=== PATIENT | female | born 1945 | race Caucasian/White ===

== ENCOUNTER 2020-05-27 12:48 | Outpatient (CLI) | payer MEDICARE, SELFPAY ==
--- NOTE | ~2020-05-27 | DEXA_ITS ---
Bone Density Report Name: Tawnya Huang Age: 74 Sex: Female Ethnicity: White Date of : 1945 Indication: osteopenia; prior fracture; asthma or emphysema; hysterectomy; rheumatoid arthritis; Referring Provider: Mikey Basilio Study: Bone densitometry was performed. Exam Date: May 27, 2020 Accession number: [id number] Bone Density: Region BMD T-score Z-score Classification AP Spine (L1-L4) 0.864 -1.7 0.6 Osteopenia Femoral Neck (Left) 0.577 -2.5 -0.5 Osteoporosis Total Hip (Left) 0.756 -1.5 0.2 Osteopenia World Health Organization criteria for BMD impression classify patients as: Normal (T-score at or above -1.0), Osteopenia (T-score between -1.0 and -2.5), or Osteoporosis (T-score at or below -2.5). 10-year Fracture Risk: FRAX not reported because: Some T-score for Spine Total or Hip Total or Femoral Neck at or below -2.5 Prior hip or vertebral fracture Previous Exams: Region Exam Age BMD T-score BMD Change BMD Change Date g/cm2 vs Baseline vs Previous AP Spine(L1-L4) 05/27/2020 74 0.864 -1.7 0.000(0.0%) 0.000(0.0%) 05/02/2018 72 0.864 -1.7 Total Hip(Left) 05/27/2020 74 0.756 -1.5 0.010(1.3%) 0.010(1.3%) 05/02/2018 72 0.747 -1.6 *Denotes significance at 95% confidence level, LSC for AP Spine = 0.022 g/cm2, LSC for Total Hip = 0.027 g/cm2 Clinical Information Provided by Patient: Have had a previous hip or vertebral fracture Has had a low trauma fracture Has rheumatoid arthritis Has used the following medications: Prolia (i.e. denosumab), Vitamin D Has the following medical conditions: Asthma or Emphysema, Hysterectomy Patient maximum height was 62 Menopause Age: 52 Drinks caffeinated beverages Onset of menses at age 14 Number of children 3 Impression: The patient has established osteoporosis, based on the Left Femoral Neck T-score and the existence of a prior fracture. The patient has risk factors, including: previous fracture. No significant bone loss was observed. Discussion: HIGH RISK OF FRACTURE. BONE DENSITY IS UNDESIRABLY LOW AT ONE OR MORE SKELETAL SITES, CONSISTENT WITH POSTMENOPAUSAL OSTEOPOROSIS. This patient's lowest T-score, in a patient who has previously fractured, meets the World Health Organization's (WHO) criteria for severe osteoporosis. In untreated patients, the risk of osteoporotic fracture increases approximately two-fold for each 1.0 SD decrease in T-score. Low bone density is not the only risk factor for fracture; also consider factors such as patient's age, frailty
== END 2020-05-27 12:49 | disposition home or self-care (01) ==
LOC: ANHIMG 12:54
PROVIDERS: Visit Provider Internal Medicine Hematology & Oncology
DX: M81.0 Age-related osteoporosis without current pathological fracture (principal); M85.88 Other specified disorders of bone density and structure, other site; M85.852 Other specified disorders of bone density and structure, left thigh
CPT/HCPCS: 77080

== ENCOUNTER 2021-12-10 10:00 | Outpatient (CLI) | payer MEDICARE, SELFPAY ==
--- NOTE | ~2021-12-10 | XR_ITS ---
EXAM: XR wrist RT 2V, XR wrist LT 2V, XR hand LT 2V, XR hand RT 2V DATE: 12/10/2021 10:39 HISTORY: MULTIPLE JOINT PAIN . COMPARISON: None available. FINDINGS: Decreased mineralization. No fracture or dislocation. No lytic or blastic lesion. Slightly erosive appearing interphalangeal joint narrowing and osteophytosis bilaterally more progressive in the right hand, and most severe in the first interphalangeal joint. Narrowing and sclerosis in the bi lateral radiocarpal joints, with subcortical cysts on the left, slightly more progressive on the left . No erosion or periosteal change. Soft tissues within normal limits. 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 Moderate left radio carpal arthritic change, possibly posttraumatic. Reviewed, dictated and finalized at [facility]. IMPRESSION: Arthritic changes the fingers consistent with erosive osteoarthriti s. Moderate left radiocarpal arthritic change, possibly posttraumatic. IMPRESSION: Arthritic changes the fingers consistent with erosive osteoarthriti s. Moderate left radiocarpal arthritic change, possibly posttraumatic. IMPRESSION: Arthritic changes the fingers consistent with erosive osteoarthriti s. Moderate left radiocarpal arthritic change, possibly posttraumatic.
--- NOTE | ~2021-12-10 | XR_ITS ---
EXAM: XR foot RT 2V, XR foot LT 2V, XR ankle RT 2V, XR ankle LT 2V DATE: 12/10/2021 10:39 HISTORY: MULTIPLE JOINT PAIN . COMPARISON: None available. FINDINGS: Decreased mineralization. No fracture or dislocation. No lytic or blastic lesion. Moderate sclerosis and osteophytosis at the bilateral MTP joints. Mild osteoarthritic change in the bilateral first interphalangeal joints. Moderate Achilles and plantar enthesopathy bilaterally. No erosion or periosteal change. Soft tissues within normal limits. IMPRESSION: Moderate osteoarthritic change at the bilateral first MTP joints. Moderate bilateral Achi lles and plantar enthesopathy. Reviewed, dictated and finalized at location K. IMPRESSION: Moderate osteoarthritic change at the bilateral first MTP joints. M oderate bilateral Achilles and plantar enthesopathy. IMPRESSION: Moderate osteoarthritic change at the bilateral first MTP joints. M oderate bilateral Achilles and plantar enthesopathy. IMPRESSION: Moderate osteoarthritic change at the bilateral first MTP joints. M oderate bilateral Achilles and plantar enthesopathy.
--- NOTE | ~2021-12-10 | XR_ITS ---
EXAM: XR sacroiliac joints min 3V DATE: 12/10/2021 10:39 HISTORY: MULTIPLE JOINT PAIN . COMPARISON: None available. FINDINGS: Partially visualized right hip arthroplasty Decreased mineralization. No fracture or dislo cation. No lytic or blastic lesion. Severe L5-S1 degenerative disc disease. Severe sclerosis and eros ion at the pubic symphysis. Mild sclerosis and osteophytosis at the bilateral SI joints. Soft tissues within normal limits. IMPRESSION: Severe L5-S1 degenerative disc disease. Severe osteitis pubis. Minimal bilateral sacroili itis. Reviewed, dictated and finalized at location K. IMPRESSION: Severe L5-S1 degenerative disc disease. Severe osteitis pubis. Mini mal bilateral sacroiliitis.
== END 2021-12-10 10:01 | disposition home or self-care (01) ==
PROVIDERS: Visit Provider Internal Medicine Rheumatology
DX: M79.10 Myalgia, unspecified site (principal); M51.37 Other intervertebral disc degeneration, lumbosacral region; M53.3 Sacrococcygeal disorders, not elsewhere classified; M19.041 Primary osteoarthritis, right hand; M19.031 Primary osteoarthritis, right wrist; M19.042 Primary osteoarthritis, left hand; M19.032 Primary osteoarthritis, left wrist
CPT/HCPCS: 72202; 73100; 73120; 73600; 73620

== ENCOUNTER 2022-05-29 08:52 | Outpatient (CLI) | payer MEDICARE, SELFPAY ==
--- NOTE | ~2022-05-29 | DEXA_ITS ---
Bone Density Report Name: MIHAELA DALEY Age: 76 Sex: Female Ethnicity: White Date of : 1945 Indication: postmenopausal; screening for osteoporosis; prior fracture; asthma or emphysema; hysterectomy; rheumatoid arthritis; secondary osteoporosis; Referring Provider: NATALIE RODRIGUEZ Study: Bone densitometry was performed. Exam Date: May 29, 2022 Accession number: [id number] Bone Density: Region BMD T-score Z-score Classification AP Spine(L1-L4) 0.915 -1.2 1.2 Osteopenia Femoral Neck (Left) 0.601 -2.2 -0.1 Osteopenia Total Hip (Left) 0.759 -1.5 0.3 Osteopenia World Health Organization criteria for BMD impression classify patients as: Normal (T-score at or above -1.0), Osteopenia (T-score between -1.0 and -2.5), or Osteoporosis (T-score at or below -2.5). 10-year Fracture Risk(1): Major Osteoporotic Fracture 27% Hip Fracture 7.7% Reported Risk Factors: [place] (), Neck BMD=0.601, BMI=25.8, previous fracture, rheumatoid arthritis, secondary osteoporosis (1) FRAX(R) Version 3.08. Fracture probability calculated for an untreated patient. Fracture probability may be lower if the patient has received treatment. Clinical Information Provided by Patient: Has had a low trauma fracture Has rheumatoid arthritis Has secondary osteoporosis Has used the following medications: HRT (i.e. estrogen/hormone therapy), Vitamin D Has the following medical conditions: Asthma or Emphysema, Hysterectomy Patient maximum height was 62 Menopause Age: 45 Drinks caffeinated beverages Onset of menses at age 14 Number of children 3 Impression: The patient has low bone mass, based on the Left Femoral Neck T-score. The patient has an estimated ten-year risk of hip fracture of 7.7% and an estimated ten-year risk of major fracture of 27%, based on the WHO FRAX algorithm. The patient has risk factors, including: previous fracture. Discussion: BONE DENSITY IS LOW AT ONE OR MORE SKELETAL SITES. THE PATIENT'S BMD AND CLINICAL RISK FACTORS CONTRIBUTE TO THIS PATIENT'S HIGH RISK OF FRACTURE. This patient's lowest T-score is low at one or more skeletal sites. It meets the World Health Organization's (WHO) criteria for ?low bone mass? (T-score between -1.0 and -2.5). The patient's 10-year risk of hip fracture and 10 year risk of a major osteoporotic fracture as calculated by FRAX exceeds the threshold where pharmacological therapy is recommended by the National Osteoporosis Foundation (NOF). However, all treatment decisions require clinical judgment and consideration of individual patient factors, including patient preferences, comorbidities, previous drug use, risk factors not captured in the FRAX model (e.g., frailty, falls, vitamin D deficiency, increased bone turnover, interval significant decline in bone density) and possible under or overestimat
== END 2022-05-29 08:53 | disposition home or self-care (01) ==
PROVIDERS: Visit Provider Internal Medicine Hematology & Oncology
DX: Z78.0 Asymptomatic menopausal state (principal); M85.89 Other specified disorders of bone density and structure, multiple sites
CPT/HCPCS: 77080

== ENCOUNTER 2023-12-12 09:11 | Outpatient (CLI) | payer MEDICARE, SELFPAY ==
[2023-12-12 09:29] LABS: Basophils Absolute Auto 0.1 K/mm3 (0.0-0.1); Basophils Percent Auto 1.3 % (0.2-1.2); Eosinophils Absolute Auto 0.2 K/mm3 (0-0.3); Eosinophils Percent Auto 3.7 % (0-4.4); Hematocrit 40.9 % (37.0-47.0); Hemoglobin 13.4 g/dL (12.0-15.0); Immature Granulocyte Absolute 0.01 K/mm3 (0.00-0.031); Immature Granulocyte Percent A 0.2 % (0-0.5); Lymphocytes Absolute Auto 1.81 K/mm3 (0.9-3.2); Lymphocytes Percent Auto 28.8 % (18.3-44.2); Mean Corpuscular HGB Conc 32.8 g/dl (32-36); Mean Corpuscular Hemoglobin 27.6 pg (26-34); Mean Corpuscular Volume 84.2 fl (80-100); Monocytes Absolute Auto 0.4 K/mm3 (0.1-0.6); Monocytes Percent Auto 6.4 % (2.6-8.5); Neutrophils Absolute Auto 3.8 K/mm3 (1.3-6.7); Neutrophils Percent Auto 59.6 % (45.5-73.1); Platelet Count Result 265 k/mm3 (150-375); Red Blood Count 4.86 M/mm3 (4.2-5.4); Red Cell Distribution Width 11.9 % (11.5-14.5); White Blood Count 6.3 K/mm3 (4.5-10.0)
[2023-12-12 09:35] LABS: Blood Urea Nitrogen 9 mg/dL (8-26); Carbon Dioxide 26 mmol/L (22-30); Chloride 96 mmol/L (98-109); Estimated Glomerular Filt Rate > 60; Glucose 397 mg/dL (70-105); Ionized Calcium (POC) 1.15 mmol/L (1.11-1.31); Potassium 3.9 mmol/L (3.5-4.9); Sodium 135 mmol/L (138-146)
[2023-12-12 12:47] LABS: Alanine Aminotransferase 17 U/L (6-35); Albumin Level 4.1 g/dL (3.5-5.1); Alkaline Phosphatase 85 U/L (38-126); Anion Gap 9 mmol/L (4-12); Aspartate Amino Transferase 19 U/L (14-36); Bilirubin,Total 0.5 mg/dL (0.2-1.3); Blood Urea Nitrogen 11 mg/dL (7-17); Calcium 9.5 mg/dL (8.4-10.2); Carbon Dioxide 29 mmol/L (22-30); Chloride 95 mmol/L (98-107); Estimated Glomerular Filt Rate > 60; Glucose 405 mg/dL (65-110); Sodium 133 mmol/L (137-145)
[2023-12-12 12:58] LABS: Folic Acid 9.3 ng/mL (2.76->20); Vitamin B12 > 1000.0 pg/mL (239-931)
== END 2023-12-12 09:12 | disposition home or self-care (01) ==
PROVIDERS: Visit Provider Internal Medicine Hematology & Oncology
DX: D64.9 Anemia, unspecified (principal)
CPT/HCPCS: 36415; 80047; 80053; 82607; 82746; 85025

== ENCOUNTER 2024-01-01 16:36 | Emergency (ER) | payer MEDICARE, SELFPAY ==
--- NOTE | ~2024-01-01 | CT_ITS ---
EXAMINATION: CT lumbar spine wo con DATE: 01/01/2024 18:18 INDICATION: Back pain post fall TECHNIQUE: Computed tomography (CT) of the lumbar spine was performed without intravenous contrast. A utomated exposure control and iterative reconstruction technique were employed. The dose-length produ ct was 311.34 mGy-cm. COMPARISON: None FINDINGS: 2 mm retrolisthesis L5 on S1. There is 2 mm right lateral listhesis L3 on L4. There is minimal upper lumbar dextrocurvature and minimal lower lumbar levocurvature. Chronic mild superior endplate sergey ninfa fracture with Schmorl's node at T12, unchanged since CT dated 01/12/2017. Lumbar vertebral body he ights are normal. No acute fractures. Severe disc height loss at L5-S1 and mild to disc height loss a t L2-L3 through L3-L4 and mild to moderate disc height loss at L4-L5 . Moderate bilateral sacral erec t osteoarthritis. Minimal atelectasis at the posterior sulci as well as of the bilateral lower lobes. The following disc levels are specifically discussed: T11-T12: The disc does not extend beyond the endplate margin. There is mild to moderate bilateral fac et joint osteoarthritis. There is no neural foraminal stenosis. There is no central canal stenosis. T12-L1: The disc does not extend beyond the endplate margin. There is moderate bilateral facet joint osteoarthritis. There is no neural foraminal stenosis. There is no central canal stenosis. L1-L2: Disc is bulging. There is mild right and moderate left facet joint osteoarthritis. There is mi ld bilateral neural foraminal stenosis. There is mild central canal stenosis. L2-L3: Disc is bulging. There is mild left and moderate to severe right facet joint osteoarthritis. T here is mild to moderate bilateral neural foraminal stenosis. There is mild to moderate central canal stenosis. L3-L4: Disc is bulging. There is mild right and moderate left facet joint osteoarthritis. There is mi ld to moderate left and moderate right neural foraminal stenosis. There is mild to moderate central c anal stenosis. L4-L5: Disc is bulging. There is moderate left and severe right facet joint osteoarthritis. There is moderate bilateral neural foraminal stenosis. There is moderate central canal stenosis. L5-S1: Disc is bulging. There is severe bilateral facet joint osteoarthritis. There is moderate left and moderate to severe right neural foraminal stenosis. There is moderate central canal stenosis. IMPRESSION: 1. Severe lumbosacral and mild lumbar spondylosis as detailed above. No acute osseous abnormality. Reviewed, dictated and finalized at location A. IMPRESSION: 1. Severe lumbosacral and mild lumbar spondylosis as detailed above. No acute o sseous abnormality.
[2024-01-01 16:42] VITALS: BP 148/70; PULSE 112; RESP 16; TEMP 36.4; O2SAT 96
[2024-01-01 18:39] VITALS: BP 171/78; PULSE 91; RESP 15; O2SAT 100
--- NOTE | 2024-01-01 20:13 | ED.FALL ---
HPI - Fall General Chief Complaint: Fall Stated Complaint: fall, back pain Time Seen by Provider: 01/01/24 19:03 History of Present Illness HPI Narrative: 78 years old white female, tripped on her dog and fell forward landed on her knees and slid forward 5 days ago, 2 days later started having pain at the right lower back radiating to the right lower extremity. Worse with certain position and certain. Patient drove herself to the emergency room and currently complaining of burning sensation at the back of the calf muscle, no lower back pain. History of rheumatoid arthritis and hypothyroidism. Also is telling me that she have history of lumbar bulging disc. She denies Patient denies bowel dysfunction, bladder dysfunction, altered sensation, focal weakness, or saddle numbness, Related Data Home Medications Medication Instructions Recorded Confirmed albuterol sulfate 90 mcg/actuation 1 - 2 inh inhalation Q4H PRN 03/04/19 06/11/23 aerosol inhaler (ProAir HFA) Shortness Of Breath alprazolam 0.5 mg tablet 0.5 mg PO DAILY 03/04/19 06/11/23 amiloride 5 mg-hydrochlorothiazide 0.5 tablet PO DAILY 03/04/19 06/11/23 50 mg tablet budesonide-formoterol HFA 160 2 puff inhalation Q12H 03/04/19 06/11/23 mcg-4.5 mcg/actuation aerosol inhaler (Symbicort) cholecalciferol (vitamin D3) 25 2,000 unit PO DAILY 03/04/19 06/11/23 mcg (1,000 unit) capsule (Vitamin D3) lansoprazole 30 mg capsule,delayed 30 mg PO DAILY 03/04/19 06/11/23 release metformin 500 mg tablet 500 mg PO DAILY 03/04/19 06/11/23 montelukast 10 mg tablet 10 mg PO HS 03/04/19 06/11/23 rosuvastatin 5 mg tablet 5 mg PO DAILY 11/24/21 06/11/23 venlafaxine 50 mg tablet 50 mg PO DAILY 12/08/22 06/11/23 levothyroxine 1 tab-cap PO DAILY 12/13/23 12/13/23 Allergies Allergy/AdvReac Type Severity Reaction Status Date / Time cefuroxime Allergy Mild Anaphylaxis Verified 01/01/24 18:38 ciprofloxacin Allergy Mild Anaphylaxis Verified 01/01/24 18:38 Sulfa (Sulfonamide Allergy Mild Hives Verified 01/01/24 18:38 Antibiotics) leflunomide Allergy Hives Verified 12/13/23 11:09 Review of Systems Review of Systems: All systems reviewed & are unremarkable except as noted in HPI and below Exam Narrative: General appearance: Well-developed, well-nourished Skin: Normal color Head: Normocephalic, nontraumatic Eyes: Clear conjunctiva ENT: Oropharynx normal, ears normal, nose normal Neck: Supple, nontender Chest and respiratory: Airway patent, no respiratory distress, no accessory muscle use Heart: Regular rate/rhythm Abdomen: Soft, nontender, no organomegaly, quiet bowel sounds Vascular: Normal peripheral pulses, normal capillary refill. Musculoskeletal: Mild tenderness along the lumbar spine, no bruises, no swelling or rash. Neurologic: Alert and oriented ?3, PLATE GRINDER is normal as tested, no gross motor deficit, negative right leg straight raising test. Course Vital Signs Vital signs: Vital Signs Temperature 36.4 C 01/01/24 16:42 Pulse Rate 112 H 01/01/24 16:42 Respiratory Rate 16 01/01/24 16:42 Blood Pressure 148/70 H 01/01/24 16:42 Pulse Oximetry 96 01/01/24 16:42 Temperature 36.4 C 01/01/24 16:42 Pulse Rate 91 01/01/24 18:39 Respiratory Rate 15 01/01/24 18:39 Blood Pressure 171/78 H 01/01/24 18:39 Pulse Oximetry 100 01/01/24 18:39 MDM - Fall MDM Narrative Medical decision making narrative: Patient presents with lower back pain radiating to right lower extremity in history of bulging disc and lumbar area Patient drove herself to the emergency room Vital signs are stable on arrival to the ED Physical examination showed negative right leg strai
[2024-01-01] MEDS: IBUPROFEN 600 MG TABLET PO (20:26)
[2024-01-01] MEDS: ACETAMINOPHEN 325 MG TABLET 650 MG PO (20:26)
[2024-01-01] MEDS: dexAMETHasone SOD PHOS INJ 10 MG/ML 1 ML VIAL IM (20:29)
[2024-01-01 20:34] VITALS: BP 156/88; PULSE 78; RESP 16; O2SAT 100
== END 2024-01-01 20:34 | disposition home or self-care (01) ==
PROVIDERS: Emergency Provider Emergency Medicine
DX: S39.92XA Unspecified injury of lower back, initial encounter (principal); M47.26 Other spondylosis with radiculopathy, lumbar region; E03.9 Hypothyroidism, unspecified; M06.9 Rheumatoid arthritis, unspecified; Z79.899 Other long term (current) drug therapy; Z79.84 Long term (current) use of oral hypoglycemic drugs; W01.0XXA Fall on same level from slipping, tripping and stumbling without subsequent striking against object, initial encounter
CPT/HCPCS: 72131; 96372; 99284; A9270; J1100

== ENCOUNTER 2024-06-11 10:59 | Outpatient (CLI) | payer MEDICARE, SELFPAY ==
--- NOTE | ~2024-06-11 | DEXA_ITS ---
Bone Density Report Name: MIHAELA DALEY Age: 78 Sex: Female Ethnicity: White Date of : 1945 Indication: osteopenia; monitoring treatment; prior fracture; asthma or emphysema; hysterectomy; rheumatoid arthritis; secondary osteoporosis; Referring Provider: NATALIE RODRIGUEZ Study: Bone densitometry was performed. Exam Date: June 11, 2024 Accession number: [id number] Bone Density: Region BMD T-score Z-score Classification AP Spine(L1-L4) 0.935 -1.0 1.5 Normal Femoral Neck (Left) 0.639 -1.9 0.3 Osteopenia Total Hip (Left) 0.770 -1.4 0.5 Osteopenia World Health Organization criteria for BMD impression classify patients as: Normal (T-score at or above -1.0), Osteopenia (T-score between -1.0 and -2.5), or Osteoporosis (T-score at or below -2.5). 10-year Fracture Risk: FRAX not reported because: Treated for osteoporosis Previous Exams: Region Exam Age BMD T-score BMD Change BMD Change Date g/cm2 vs Baseline vs Previous AP Spine (L1-L4) 06/11/2024 78 0.935 -1.0 0.071 (8.3%)# 0.020 (2.2%)# 05/29/2022 76 0.915 -1.2 0.051 (5.9%)* 0.051 (5.9%)* 05/27/2020 74 0.864 -1.7 0.000 (0.0%) 0.000 (0.0%) 05/02/2018 72 0.864 -1.7 Total Hip(Left) 06/11/2024 78 0.770 -1.4 0.024 (3.1%)# 0.011 (1.5%)# 05/29/2022 76 0.759 -1.5 0.012 (1.6%) 0.002 (0.3%) 05/27/2020 74 0.756 -1.5 0.010 (1.3%) 0.010 (1.3%) 05/02/2018 72 0.747 -1.6 *Denotes significance at 95% confidence level, LSC for AP Spine = 0.022 g/cm2, LSC for Total Hip = 0.027 g/cm2 # Denotes dissimilar scan types or analysis methods Clinical Information Provided by Patient: Has had a low trauma fracture Has rheumatoid arthritis Has secondary osteoporosis Is being treated for osteoporosis Has used the following medications: Vitamin D, Calcium Has the following medical conditions: Asthma or Emphysema, Hysterectomy Patient maximum height was 62 Menopause Age: 45 Drinks caffeinated beverages Onset of menses at age 14 Number of children 3 Impression: The patient has low bone mass, based on the Left Femoral Neck T-score. The patient has risk factors, including: previous fracture. No significant bone loss was observed. Discussion: PATIENT UNDER TREATMENT WITH NO SIGNIFICANT BMD LOSS SINCE LAST EXAM. In an untreated patient, BMD typically declines with age. A lack of decline or gain is usually a sign that treatment is efficacious and fracture risk is reduced. It is important to ask patients whether they are taking their medications and to encourage continued and appropriate compliance with their osteoporosis therapies to reduce fracture risk. It is also important to review their risk factors and encourage appropriate calcium and vitamin D intakes, exercise, fall prevention and other lifestyle measures. Follow-Up: Consider a repeat BMD and Vertebral Fracture Assessment (VFA) exam in 2 years or sooner if medically necessary, to reassess this patient's status. Reported by: CANDY on 06/11/2024 11:25:00 AM. Reviewed, dictated and finalized at location AStefani [facility]ERON
--- OUTSIDE RECORDS SUMMARY | 2024-06-11 12:13 | XMS_ITS | Continuity of Care Document ---
Author Organization [facility] Address [address] [place] [address] [address] [place] [address] Phone Care Team Providers Care Pegger Name Role Phone Augusta Gaston Unavailable Unavailable Procedures Procedure Date Office/outpatient Visit, Est Advance Directives Directive Yes / No Effective Date File Name No Information Encounters Encounter Description Practice Location Reason(s) For Visit Diagnoses Date Provider Providers Copied on Encounter Office/outpat ient Visit, Est [facility], [address] [place] [address] [address], [place], [place], [id number], [place] tel:[phone] [facility] No Information 0-[address] , [address], [place], [address], [place]. tel:[phone] Family History Family Member Type Diagnosis Age At Onset No Information Payers Payer name Insurance type Covered libertarian ID Authoriza tion(s) No Information Social History Type Description Quantity Date Captured Comments Sex Female Smoking Status No Information Chief Complaint And Reason For Visit No Information Reason For Referral Reason For Referral No Information History Of Present Illness Encounter Date Complaint History Of Prese nt Illness No Information Functional Status Date Functional Assessmen t No Information Instructions Date Instruction Additional Infor mation No Information Assessments Type Assessment Date No Information Patient Care Teams Name Effective Dates (start - stop) Status Members No Information
--- OUTSIDE RECORDS SUMMARY | 2024-06-11 12:13 | XMS_ITS | Data Portability ---
Author Organization [place] [facility],, Frances gonzalez Address [address] [place] [address] Assessment No assessment recorded. Plan of Treatment Reminders Order Date Submit Date Provider Last Modified By Organization Details Last Modified Time Details Appointments ESTABL ROSIE Jasso VISIT 2024 10:00A M Frances Gonzalez, OPHTHALMIC TECHNICIAN-C Not available Not available Not available Lab cultur e, urine 2020 021 ERVIN [facility], [address], [place], [address], 05/24/2020 14:10:13 urinal ysis, dipsti ck 2020 021 [email or web address] [facility], [address], [address], [place], [address], 05/21/2020 12:56:13 urinal ysis, comple te 2020 021 ERVIN [facility], [address], [place], [address], 05/24/2020 14:10:12 TSH + free T4, serum 2020 021 ERVIN [facility], [address], [place], [address], 12/07/2020 08:48:35 lipid panel, serum 2020 021 ERVIN [facility], [address], [place], [address], 12/07/2020 08:48:36 HbA1c (hemog lobin A1c), blood 2020 021 ERVIN [facility], [address], [address], [place], [address], 12/07/2020 08:48:36 CBC 2020 021 [email or web address] [facility], [address], [address], [place], [address], 12/13/2020 15:05:24 vitami n D, 25-hyd tania, total, serum 2020 021 ERVIN [facility], [address], [place], [address], 12/07/2020 08:48:37 urinal ysis, dipsti ck 2020 021 [facility], [address], [address], [place], [address], 12/06/2020 14:03:53 vitami n B12, serum 2020 021 ERVIN [facility], [address], [address], [place], [address], 12/07/2020 08:48:37 CMP, serum or plasma 2020 021 ERVIN [facility], [address], [address], [place], [address], 12/07/2020 08:48:36 rapid flu (A+B) 2024 025 [facility], [address], [address], [place], [address], 06/02/2024 15:19:06 rapid SARS CoV 2 Ag, QL, IA, upper respir atory specim en 2024 025 In-Office Order, Internal Use Only DO Not Attach Compendium DO Not Attach Compendium, Do Not Delete/merge, [id number] 06/02/2024 15:19:59 Referral None record ed. Procedures None record ed. Surgeries None record ed. Imaging electr ocardi ogram 2020 [email or web address] [facility], [address], [address], [place], [address], 12/06/2020 15:00:20 MAMMO, screen ing, digita l, bilate ral 2020 [email or web address] [facility], [address] [facility], [place], [address], 12/21/2020 17:23:34 Medication Orders Macrob id 100 mg capsul e 2020 [facility] [place], [address], 05/15/2023 16:32:59 Euthyr ox 100 mcg tablet [address] [facility] [address] [place], [address], 12/06/2020 14:03:53 rosuva statin 10 mg tablet 2020 021 [facility] [address], [address] [place], [address], 05/15/2023 16:33:25 metfor min 500 mg tablet [address] [facility] [address] [facility] [address] [place], [address], 12/06/2020 14:03:53 budeso nide-f ormote rol HFA 160 mcg-4. 5 mcg/ac tuatio n aeroso l inhale r 2020 021 [email or web address] [facility] [address], [address] [place], [address], 12/07/2020 15:45:45 maribell ukast 10 mg tablet [address] [facility] [address] [facility] [address] [facility], [place], [address], 12/06/2020 14:03:53 lansop razole 30 mg capsul e,israel yed releas e [address] [facility] [address] [facility] [address], [address] [facility], [place], [address], 12/06/2020 14:03:53 sertra line 50 mg tablet 2020 021 [facility] [address], [address] [facility], [place], [address], 05/15/2023 16:33:51 amilor lucio 5 mg-hyd rochlo rothia zide 50 mg tablet [address] [facility] [address] [facility] [address], [address] [facility], [place], [address], 12/06/2020 14:03:53 ipratr opium bromid e 21 mcg (0.03 %) nasal spray 2020 021 [facility] [address] [place], [address], 12/06/2020 15:12:26 budeso nide-f ormote rol HFA 160 mcg-4. 5 mcg/ac tuatio n aeroso l inhale r 2020 021 [id number], [address] [address], [place], [place], [id number], 02/22/2021 12:06:55 predni sone 10 mg tablet 2024 025 [facility] [address], [address] [place], [address], 06/02/2024 15:35:19 budeso nide-f ormote rol HFA 160 mcg-4. 5 mcg/ac tuatio n aeroso l inhale r 2024 025 [facility] [address], [address] [place], [address], 06/02/2024 15:36:25 albute rol sulfat e HFA 90 mcg/ac tuatio n aeroso l inhale r 2024 025 [facility] [address], [address] [place], [address], 06/02/2024 15:37:43 amoxic illin 875 mg-pot assium clavul anate 125 mg tablet 2024 025 [facility], [address] [place] [address], [address], 06/02/2024 15:35:20 Patient TargetsNo targets recorded. Patient Instructions Encounter Date Encounter Id Patient Instructions Last Modified By Organization Details Last Modified Time 12/06/2020 [id number] Please follow a diet that is high in fruits and vegetables and low in processed foods such as sugar and foods that are made with white flour. The use of beneficial fats such as olive oil, nuts, seeds and berries is recommended as is avoiding saturated animal fats. Please stay physically active to the extent that you are able. If you have not received communication about test results within 7 days of the test being performed, please contact the office. Not available 12/06/2020 14:36:29 Side effects of inhaled corticosteroids were reviewed with emphasis placed on oral candidiasis and dysphonia. Rinsing the mouth after utilization should decrease the incidence of oral candidiasis significantly. Sometimes use of the spacer may improve symptoms of dysphonia. Not available 12/06/2020 14:36:40 02/22/2021 [id number] influenza (flu) vaccine: care instructions [email or web address] Not available 02/22/2021 12:06:55 06/02/2024 [id number] Oral steroids si de effects were reviewed with emphasis on weight gain, increased appetite, mood changes, heartburn, hypertension, diabetes, thinning of the bones, hip damage such as aseptic necrosis, glaucoma, cataracts, and infection. Side effects of inhaled corticosteroids were reviewed with emphasis placed on oral candidiasis and dysphonia. Rinsing the mouth after utilization should decrease the incidence of oral candidiasis significantly. Sometimes use of the spacer may improve symptoms of dysphonia. Penicillin and cephalosporin side effects were reviewed with emphasis on gastrointestinal problems such as diarrhea and allergic reactions.Probiotic s maybe helpful in preventing the GI side effects. Allergic reactions may be severe. Discontinue the medication and call the office if rash, fever, or mouth sores develop. Not available 06/08/2024 16:37:28 Reason for Referral None Reported. Results Created Date Observation Date Name Description Value Unit Range Abnormal Flag Note LastModifiedBy Organization Detail LastModifiedTime 05/21/1905/22/2020 urina lysis , compl ete specific gravity 1.009 1.005- 1.030 Not Available [facility] ([facility]) [address] [place], [address], 05/24/2020 14:10:12 05/21/1905/22/2020 urina lysis , compl ete pH 7.0 5.0-7. 5 Not Available [facility] ([facility]) [address] [place], [address], 05/24/2020 14:10:12 05/21/1905/22/2020 urina lysis , compl ete urine-color Yellow yellow Not Available [facility] ([facility]) [address] [place], [address], 05/24/2020 14:10:12 05/21/1905/22/2020 urina lysis , compl ete appearance Clear clear Not Available [facility] ([facility]) [address] [place], [address], 05/24/2020 14:10:12 05/21/1905/22/2020 urina lysis , compl ete WBC esterase 2+ negati ve abnormal Not Available [facility] ([facility]) [address] [place], [address], 05/24/2020 14:10:12 05/21/1905/22/2020 urina lysis , compl ete protein Negati ve negati ve/tra ce Not Available [facility] ([facility]) [address] [place], [address], 05/24/2020 14:10:12 05/21/1905/22/2020 urina lysis , compl ete glucose Negati ve negati ve Not Available [facility] ([facility]) [address] [place], [address], 05/24/2020 14:10:12 05/21/1905/22/2020 urina lysis , compl ete ketones Negati ve negati ve Not Available [facility] ([facility]) [address] [place], [address], 05/24/2020 14:10:12 05/21/1905/22/2020 urina lysis , compl ete occult blood Negati ve negati ve Not Available [facility] ([facility]) [address] [place], [address], 05/24/2020 14:10:12 05/21/1905/22/2020 urina lysis , compl ete bilirubin Negati ve negati ve Not Available [facility] ([facility]) [address] [place], [address], 05/24/2020 14:10:12 05/21/1905/22/2020 urina lysis , compl ete urobilinogen ,semi-qn 0.2 mg/dL 0.2-1. 0 Not Available [facility] ([facility]) [address] [place], [address], 05/24/2020 14:10:12 05/21/19 21 05/22/2020 urina lysis , compl ete nitrite, urine Positi ve negati ve abnormal Not Available [facility] ([facility]) [address] [place], [address], 05/24/2020 14:10:12 05/21/19 21 05/22/2020 urina lysis , compl ete microscopic examination See below: Micro scopi c was indic ated and was perfo rmed. Not Available [facility] ([facility]) [address] [place], [address], 05/24/2020 14:10:12 05/21/19 21 05/22/2020 urina lysis , compl ete WBC 0-5 /hpf 0 - 5 Not Available [facility] ([facility]) [address] [place], [address], 05/24/2020 14:10:12 05/21/19 21 05/22/2020 urina lysis , compl ete RBC 0-2 /hpf 0 - 2 Not Available [facility] ([facility]) [address] [place], [address], 05/24/2020 14:10:12 05/21/19 21 05/22/2020 urina lysis , compl ete epithelial cells (non renal) 0-10 /hpf 0 - 10 Not Available [facility] ([facility]) [address] [place], [address], 05/24/2020 14:10:12 05/21/1905/22/2020 urina lysis , compl ete epithelial cells (renal) OPHTHALMIC TECHNICIAN Not Available [facility] ([facility]) [address] [place], [address], 05/24/2020 14:10:12 05/21/19 21 05/22/2020 urina lysis , compl ete casts OPHTHALMIC TECHNICIAN Not Available [facility] ([facility]) [address] [facility], [place], [address], 05/24/2020 14:10:12 05/21/19 21 05/22/2020 urina lysis , compl ete cast type OPHTHALMIC TECHNICIAN Not Available [facility] ([facility]) [address] [facility], [place], [address], 05/24/2020 14:10:12 05/21/19 21 05/22/2020 urina lysis , compl ete crystals OPHTHALMIC TECHNICIAN Not Available [facility] ([facility]) [address] [facility], [place], [address], 05/24/2020 14:10:12 05/21/19 21 05/22/2020 urina lysis , compl ete crystal type OPHTHALMIC TECHNICIAN Not Available [facility] ([facility]) [address] [facility], [place], [address], 05/24/2020 14:10:12 05/21/19 21 05/22/2020 urina lysis , compl ete mucus threads Presen t not estab. Not Available [facility] ([facility]) [address] [facility], [place], [address], 05/24/2020 14:10:12 05/21/19 21 05/22/2020 urina lysis , compl ete bacteria Modera te none seen/f ew abnormal Not Available [facility] ([facility]) [address] [facility], [place], [address], 05/24/2020 14:10:12 05/21/1905/22/2020 urina lysis , compl ete yeast OPHTHALMIC TECHNICIAN Not Available [facility] ([facility]) [address] [place], [address], 05/24/2020 14:10:12 05/21/1905/22/2020 urina lysis , compl ete trichomonas OPHTHALMIC TECHNICIAN Not Available [facility] ([facility]) [address] [facility], [place], [address], 05/24/2020 14:10:12 05/21/19 21 05/22/2020 urina lysis , compl ete comment OPHTHALMIC TECHNICIAN Not Available [facility] ([facility]) [address] [facility], [place], [address], 05/24/2020 14:10:12 05/21/19 21 05/22/2020 urina lysis , compl ete microscopic examination OPHTHALMIC TECHNICIAN Not Available [facility]) [address] [facility], [place], [address], 05/24/2020 14:10:12 05/21/1905/24/2020 cultu re, urine urine culture,comp rehensive Final report abnormal Not Available [facility] ([facility]) [address] [facility], [place], [address], 05/24/2020 14:10:13 05/21/1905/24/2020 cultu re, urine result 1 Escher ichia coli abnormal Great er than 100,0 00 colon y formi ng units per mL Cefaz geovany <=4 ug/mL Cefaz geovany with an ANH <=16 predi cts susce ptibi lity to the oral agent s cefac america, cefdi netta, cefpo doxim e, cefpr ozil, cefur oxime , cepha lexin , and lorac arbef when used for thera py of uncom plica cedric urina ry tract infec tions due to E. coli, Klebs iella pneum oniae , and Prote us mirab ilis. Not Available [facility] ([facility]) [address] [facility], [place], [address], 05/24/2020 14:10:13 05/21/1905/24/2020 cultu re, urine antimicrobia l susceptibili ty Commen t S = Susce ptibl e; I = Inter media te; R = Resis tant P = Posit obey; N = Negat obey MICS are expre ssed in micro grams per mL Antib iotic RSLT# 1 RSLT# 2 RSLT# 3 RSLT# 4 Amoxi cilli n/Cla vulan ic Acid S Ampic illin R Cefep sabino S Ceftr iaxon e S Cefur oxime I Cipro floxa satish R Ertap enem S Genta micin S Imipe nem S Levof loxac in R Merop enem S Nitro furan toin S Piper acill in/Ta zobac romo S Tetra cycli ne R Tobra mycin S Trime thopr im/Mijares lfa S Not Available [facility] ([facility]) [address] [facility], [place], [address], 05/24/2020 14:10:13 05/21/19 21 05/21/2020 urina lysis , dipst ick Leukocytes Modera te Not Available [facility] [address] [facility] [address], [place], [address], 05/21/2020 12:46:16 05/21/19 21 05/21/2020 urina lysis , dipst ick Nitrite positi ve Not Available [facility] [address] [facility] [address], [place], [address], 05/21/2020 12:46:16 05/21/19 21 05/21/2020 urina lysis , dipst ick Urobilinogen .2 Not Available [facility] [address] [facility] [address], [place], [address], 05/21/2020 12:46:16 05/21/19 21 05/21/2020 urina lysis , dipst ick Protein Negati ve Not Available [facility] [address] [facility] [address], [place], [address], 05/21/2020 12:46:16 05/21/19 21 05/21/2020 urina lysis , dipst ick pH 7.5 Not Available [facility] [address] [facility] [address], [place], [address], 05/21/2020 12:46:16 05/21/19 21 05/21/2020 urina lysis , dipst ick Blood Hemoly zed: Trace Not Available [facility] [address], [place], [address], 05/21/2020 12:46:16 05/21/19 21 05/21/2020 urina lysis , dipst ick Specific Victoria 1.025 Not Available [facility] [address] [facility] [address], [place], [address], 05/21/2020 12:46:16 05/21/19 21 05/21/2020 urina lysis , dipst ick Ketone Modera te Not Available [facility] [address] [facility] [address], [place], [address], 05/21/2020 12:46:16 05/21/19 21 05/21/2020 urina lysis , dipst ick Bilirubin Negati ve Not Available [facility] [address] [facility] [address], [place], [address], 05/21/2020 12:46:16 05/21/19 21 05/21/2020 urina lysis , dipst ick Glucose Negati ve Not Available [facility] [address] [facility] [address], [place], [address], 05/21/2020 12:46:16 12/07/19 21 12/07/2020 TSH+F REE T4 TSH 0.422 uIU/m L 0.450- 4.500 below low normal Not Available [facility] ([facility]) [address] [facility], [place], [address], 12/07/2020 08:48:35 12/07/1912/07/2020 TSH+F REE T4 T4,free(dire ct) 1.74 NG/dL 0.82-1 .77 Not Available [facility] ([facility]) [address] [facility], [place], [address], 12/07/2020 08:48:35 12/07/19 21 12/07/2020 CBC WITH DIFFE RENTI AL/PL ATELE T WBC 8.5 x10e3 /uL 3.4-10 .8 Not Available [facility] ([facility]) [address] [facility], [place], [address], 12/07/2020 08:48:35 12/07/19 21 12/07/2020 CBC WITH DIFFE RENTI AL/PL ATELE T RBC 4.47 x10e6 /uL 3.77-5 .28 Not Available [facility] ([facility]) [address] [facility], [place], [address], 12/07/2020 08:48:35 12/07/19 21 12/07/2020 CBC WITH DIFFE RENTI AL/PL ATELE T hemoglobin 12.7 g/dL 11.1-1 5.9 Not Available [facility] ([facility]) [address] [place], [address], 12/07/2020 08:48:35 12/07/19 21 12/07/2020 CBC WITH DIFFE RENTI AL/PL ATELE T hematocrit 38.6 % 34.0-4 6.6 Not Available [facility] ([facility]) [address] [place], [address], 12/07/2020 08:48:35 12/07/19 21 12/07/2020 CBC WITH DIFFE RENTI AL/PL ATELE T MCV 86 fL 79-97 Not Available [facility] ([facility]) [address] [place], [address], 12/07/2020 08:48:35 12/07/19 21 12/07/2020 CBC WITH DIFFE RENTI AL/PL ATELE T MCH 28.4 pg 26.6-3 3.0 Not Available [facility] ([facility]) [address] [facility], [place], [address], 12/07/2020 08:48:35 12/07/19 21 12/07/2020 CBC WITH DIFFE RENTI AL/PL ATELE T MCHC 32.9 g/dL 31.5-3 5.7 Not Available [facility] ([facility]) [address] [facility], [place], [address], 12/07/2020 08:48:35 12/07/19 21 12/07/2020 CBC WITH DIFFE RENTI AL/PL ATELE T RDW 12.4 % 11.7-1 5.4 Not Available [facility] ([facility]) [address] [facility], [place], [address], 12/07/2020 08:48:35 12/07/19 21 12/07/2020 CBC WITH DIFFE RENTI AL/PL ATELE T platelets 353 x10e3 /uL 150-45 0 Not Available [facility] ([facility]) [address] [facility], [place], [address], 12/07/2020 08:48:35 12/07/19 21 12/07/2020 CBC WITH DIFFE RENTI AL/PL ATELE T neutrophils 66 % not estab. Not Available [facility] ([facility]) [address] [place], [address], 12/07/2020 08:48:35 12/07/19 21 12/07/2020 CBC WITH DIFFE RENTI AL/PL ATELE T lymphs 26 % not estab. Not Available [facility] ([facility]) [address] [place], [address], 12/07/2020 08:48:35 12/07/19 21 12/07/2020 CBC WITH DIFFE RENTI AL/PL ATELE T monocytes 5 % not estab. Not Available [facility] ([facility]) [address] [facility], [address], 12/07/2020 08:48:35 12/07/19 21 12/07/2020 CBC WITH DIFFE RENTI AL/PL ATELE T eos 2 % not estab. Not Available [facility] ([facility]) [address] [place], [address], 12/07/2020 08:48:35 12/07/19 21 12/07/2020 CBC WITH DIFFE RENTI AL/PL ATELE T basos 1 % not estab. Not Available [facility] ([facility]) [address] [place], [address], 12/07/2020 08:48:35 12/07/19 21 12/07/2020 CBC WITH DIFFE RENTI AL/PL ATELE T immature cells OPHTHALMIC TECHNICIAN Not Available [facility] ([facility]) [address] [place], [address], 12/07/2020 08:48:35 12/07/19 21 12/07/2020 CBC WITH DIFFE RENTI AL/PL ATELE T neutrophils (absolute) 5.7 x10e3 /uL 1.4-7. 0 Not Available [facility] ([facility]) [address] [place], [address], 12/07/2020 08:48:35 12/07/1912/07/2020 CBC WITH DIFFE RENTI AL/PL ATELE T lymphs (absolute) 2.2 x10e3 /uL 0.7-3. 1 Not Available [facility] ([facility]) [address] [place], [address], 12/07/2020 08:48:35 12/07/19 21 12/07/2020 CBC WITH DIFFE RENTI AL/PL ATELE T monocytes(ab solute) 0.4 x10e3 /uL 0.1-0. 9 Not Available [facility] ([facility]) [address] [place], [address], 12/07/2020 08:48:35 12/07/19 21 12/07/2020 CBC WITH DIFFE RENTI AL/PL ATELE T eos (absolute) 0.1 x10e3 /uL 0.0-0. 4 Not Available [facility] ([facility]) [address] [facility], [place], [address], 12/07/2020 08:48:35 12/07/19 21 12/07/2020 CBC WITH DIFFE RENTI AL/PL ATELE T baso (absolute) 0.1 x10e3 /uL 0.0-0. 2 Not Available [facility] ([facility]) [address] [facility], [place], [address], 12/07/2020 08:48:35 12/07/19 21 12/07/2020 CBC WITH DIFFE RENTI AL/PL ATELE T immature granulocytes 0 % not estab. Not Available [facility] ([facility]) [address] [facility], [place], [address], 12/07/2020 08:48:35 12/07/19 21 12/07/2020 CBC WITH DIFFE RENTI AL/PL ATELE T immature grans (abs) 0.0 x10e3 /uL 0.0-0. 1 Not Available [facility] ([facility]) [address] [facility], [place], [address], 12/07/2020 08:48:35 12/07/19 21 12/07/2020 CBC WITH DIFFE RENTI AL/PL ATELE T NRBC OPHTHALMIC TECHNICIAN Not Available [facility] ([facility]) [address] [facility], [place], [address], 12/07/2020 08:48:35 12/07/19 21 12/07/2020 CBC WITH DIFFE RENTI AL/PL ATELE T hematology comments: OPHTHALMIC TECHNICIAN Not Available [facility] ([facility]) [address] [facility], [place], [address], 12/07/2020 08:48:35 12/07/19 21 12/07/2020 COMP. METAB OLIC PANEL (14) glucose 87 mg/dL 65-99 Not Available [facility] ([facility]) [address] [place], [address], 12/07/2020 08:48:35 12/07/19 21 12/07/2020 COMP. METAB OLIC PANEL (14) BUN 6 mg/dL 8-27 below low normal Not Available [facility] ([facility]) [address] [place], [address], 12/07/2020 08:48:35 12/07/19 21 12/07/2020 COMP. METAB OLIC PANEL (14) creatinine 0.61 mg/dL 0.57-1 .00 Not Available [facility] ([facility]) [address] [facility], [place], [address], 12/07/2020 08:48:35 12/07/19 21 12/07/2020 COMP. METAB OLIC PANEL (14) eGFR if nonafricn AM 90 mL/mi n/1.7 3 >59 Not Available [facility] ([facility]) [address] [facility], [place], [address], 12/07/2020 08:48:35 12/07/19 21 12/07/2020 COMP. METAB OLIC PANEL (14) eGFR if africn AM 104 mL/mi n/1.7 3 >59 Lab [facility] curre ntly repor ts eGFR in compl iance with the curre nt recom menda tions of the [facility] ation . [facility] will updat e repor ting as new guide lines are publi shed from the NKF-A SN Task force . Not Available [facility] ([facility]) [address] [place], [address], 12/07/2020 08:48:35 12/07/19 21 12/07/2020 COMP. METAB OLIC PANEL (14) BUN/creatini ne ratio 10 12-28 below low normal Not Available [facility] ([facility]) [address] [place], [address], 12/07/2020 08:48:35 12/07/19 21 12/07/2020 COMP. METAB OLIC PANEL (14) sodium 139 mmol/ L 134-14 4 Not Available [facility] ([facility]) [address] [place], [address], 12/07/2020 08:48:35 12/07/19 21 12/07/2020 COMP. METAB OLIC PANEL (14) potassium 4.0 mmol/ L 3.5-5. 2 Not Available [facility] ([facility]) [address] [place], [address], 12/07/2020 08:48:35 12/07/19 21 12/07/2020 COMP. METAB OLIC PANEL (14) chloride 100 mmol/ L 96-106 Not Available [facility] ([facility]) [address] [place], [address], 12/07/2020 08:48:35 12/07/19 21 12/07/2020 COMP. METAB OLIC PANEL (14) carbon dioxide, total 24 mmol/ L 20-29 Not Available [facility] ([facility]) [address] [place], [address], 12/07/2020 08:48:35 12/07/19 21 12/07/2020 COMP. METAB OLIC PANEL (14) calcium 9.7 mg/dL 8.7-10 .3 Not Available [facility] ([facility]) [address] [place], [address], 12/07/2020 08:48:35 12/07/19 21 12/07/2020 COMP. METAB OLIC PANEL (14) protein, total 6.8 g/dL 6.0-8. 5 Not Available [facility] ([facility]) [address] [facility] [place], [address], 12/07/2020 08:48:35 12/07/19 21 12/07/2020 COMP. METAB OLIC PANEL (14) albumin 4.5 g/dL 3.7-4. 7 Not Available [facility] ([facility]) [address] [place], [address], 12/07/2020 08:48:35 12/07/19 21 12/07/2020 COMP. METAB OLIC PANEL (14) globulin, total 2.3 g/dL 1.5-4. 5 Not Available [facility] ([facility]) [address] [place], [address], 12/07/2020 08:48:35 12/07/19 21 12/07/2020 COMP. METAB OLIC PANEL (14) A/G ratio 2.0 1.2-2. 2 Not Available [facility] ([facility]) [address] [place], [address], 12/07/2020 08:48:35 12/07/19 21 12/07/2020 COMP. METAB OLIC PANEL (14) bilirubin, total 0.3 mg/dL 0.0-1. 2 Not Available [facility] ([facility]) [address] [place], [address], 12/07/2020 08:48:35 12/07/19 21 12/07/2020 COMP. METAB OLIC PANEL (14) alkaline phosphatase 77 IU/L 48-121 Not Available [facility] ([facility]) [address] [place], [address], 12/07/2020 08:48:35 12/07/19 21 12/07/2020 COMP. METAB OLIC PANEL (14) AST (SGOT) 17 IU/L 0-40 Not Available [facility] ([facility]) [address] [facility] [place], [address], 12/07/2020 08:48:35 12/07/19 21 12/07/2020 COMP. METAB OLIC PANEL (14) ALT (SGPT) 17 IU/L 0-32 Not Available [facility] ([facility]) [address] [facility], [place], [address], 12/07/2020 08:48:35 12/07/19 21 12/07/2020 LIPID PANEL WITH LDL/H DL RATIO cholesterol, total 234 mg/dL 100-19 9 above high normal Not Available [facility] ([facility]) [address] [facility], [place], [address], 12/07/2020 08:48:36 12/07/19 21 12/07/2020 LIPID PANEL WITH LDL/H DL RATIO triglyceride s 88 mg/dL 0-149 Not Available [facility] ([facility]) [address] [facility], [place], [address], 12/07/2020 08:48:36 12/07/19 21 12/07/2020 LIPID PANEL WITH LDL/H DL RATIO HDL cholesterol 68 mg/dL >39 Not Available [facility] ([facility]) [address] [facility], [place], [address], 12/07/2020 08:48:36 12/07/19 21 12/07/2020 LIPID PANEL WITH LDL/H DL RATIO VLDL cholesterol tripp 15 mg/dL 5-40 Not Available [facility] ([facility]) [address] [place], [address], 12/07/2020 08:48:36 12/07/19 21 12/07/2020 LIPID PANEL WITH LDL/H DL RATIO LDL chol calc ([facility]) 151 mg/dL 0-99 above high normal Not Available [facility] ([facility]) [address] [place], [address], 12/07/2020 08:48:36 12/07/19 21 12/07/2020 LIPID PANEL WITH LDL/H DL 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 2 LDL/H DL Ratio Men Women 1/2 Avg.R isk 1.0 1.5 Avg.R isk 3.6 3.2 2X Avg.R isk 6.2 5.0 3X Avg.R isk 8.0 6.1 Not Available [facility] ([facility]) [address] [facility], [place], [address], 12/07/2020 08:48:36 12/07/1912/07/2020 HEMOG LOBIN A1C hemoglobin A1C 6.3 % 4.8-5. 6 above high normal Predi abete s: 5.7 - 6.4 Diabe lupe: >6.4 Glyce anh contr ol for adult s with diabe lupe: <7.0 Not Available [facility] ([facility]) [address] [facility], [place], [address], 12/07/2020 08:48:36 12/07/1912/07/2020 VITAM IN D, 25-HY DROXY vitamin D, 25-hydroxy 63.2 NG/mL 30.0-1 00.0 Vitam in D defic iency has been defin ed by the Insti tute of Medic ine and an Endoc rine Socie ty pract ice guide line as a level of serum 25-OH vitam in D less than 20 ng/mL (1,2) . The Endoc rine Socie ty went on to furth er defin e vitam in D insuf ficie ncy as a level betwe en 21 and 29 ng/mL (2). 1. IOM (Inst itute of Medic ine). 2010. Dieta ry refer ence anastasia es for calci um and DStefani long [place]: [facility] . 2. Jasbir aj MF, Adeola ey [place], Lexie off-F errar i DUKES, et al. Evalu ation , treat ment, and preve ntion of vitam in D defic iency : an Endoc rine Socie ty clini tripp pract ice guide line. JCEM. 2010; 96(7) :1911 -30. Not Available [facility] ([facility]) [address] [facility], [place], [address], 12/07/2020 08:48:37 12/07/19 21 12/07/2020 VITAM IN B12 vitamin B12 443 pg/mL 232-12 45 Not Available [facility] ([facility]) [address] [facility], [place], [address], 12/07/2020 08:48:37 12/07/19 21 12/06/2020 urina lysis , dipst ick Leukocytes Negati ve Not Available [facility] [address] [facility] [address], [place], [address], 12/06/2020 13:37:25 12/07/19 21 12/06/2020 urina lysis , dipst ick Nitrite negati ve Not Available [facility] [address] [facility] [address], [place], [address], 12/06/2020 13:37:25 12/07/19 21 12/06/2020 urina lysis , dipst ick Urobilinogen .2 Not Available [facility] [address] [facility] [address], [place], [address], 12/06/2020 13:37:25 12/07/19 21 12/06/2020 urina lysis , dipst ick Protein Negati ve Not Available [facility] [address] [facility] [address], [place], [address], 12/06/2020 13:37:25 12/07/19 21 12/06/2020 urina lysis , dipst ick pH 6.0 Not Available [facility] [address] [facility] [address], [place], [address], 12/06/2020 13:37:25 12/07/19 21 12/06/2020 urina lysis , dipst ick Blood Negati ve Not Available [facility] [address] [facility] [address], [place], [address], 12/06/2020 13:37:25 12/07/19 21 12/06/2020 urina lysis , dipst ick Specific Victoria 1.025 Not Available [facility] [address] [facility] [address], [place], [address], 12/06/2020 13:37:25 12/07/19 21 12/06/2020 urina lysis , dipst ick Ketone Negati ve Not Available [facility] [address] [facility] [address], [place], [address], 12/06/2020 13:37:25 12/07/19 21 12/06/2020 urina lysis , dipst ick Bilirubin Negati ve Not Available [facility] [address] [facility] [address], [place], [address], 12/06/2020 13:37:25 12/07/19 21 12/06/2020 urina lysis , dipst ick Glucose Negati ve Not Available [facility] [address] [facility] [address], [place], [address], 12/06/2020 13:37:25 06/02/19 25 06/02/2024 rapid SARS CoV 2 Ag, QL, IA, upper respi rator y speci men RAPID COVID TEST negati ve Not Available In-Office Order Internal Use Only DO Not Attach Compendium DO Not Attach Compendium, Do Not Delete/merge, [id number] 06/02/2024 15:19:50 06/02/19 25 06/02/2024 rapid flu (A+B) Flu positi ve Not Available [facility] [address], [place], [address], 06/02/2024 15:18:10 12/07/19 21 12/06/2020 elect rocar diogr am No observ ation record ed. [facility] [address], [place], [address], 12/06/2020 14:32:54 12/07/19 elect rocar diogr am No observ ation record ed. Not Available 12/06 13:46:26 Result Notes None recorded. Problems Name Problem SNOMED Code Status Onset Date Resolution Date Notes Provider Name and Address Organization Details Recorded Time Benign essential hypertensio n 7216745 Active MD [address], [place], [address] , [place] [facility], 6 14:30:53 Chronic urticaria 16109577 Active MD [address], [place], [address] , [place] [facility], 6 11:49:36 Acquired hypothyroid ism 939779790 Active MD [address], [place], [address], [place] [facility], 6 11:49:36 Idiopathic urticaria 50659865 Completed 02/21/[address], [place], [address], [place] [facility], 7 00:16:56 IgE-mediate d allergic asthma 153946718 Active MD [address], [place], [address], [place] [facility], 6 11:49:36 Acute bronchitis 39451432 Completed 02/21/[address], [place], [address], [place] [facility], 7 00:17:00 Depressive disorder 79836719 Active [address], [place], [address], [place] [facility], 0 09:45:18 Exposure to SARS-CoV-2 Completed 201912/06/[address], [place], [address], [place] [facility], 1 13:39:36 Osteoporosi s 68123643 Active [address], [place], [address], [place] [facility], 0 15:44:06 Mixed hyperlipide delio 855626690 Active [address], [place], [address], [place] [facility], 1 14:53:16 Allergic rhinitis 66143536 Active [address], [place], [address], [place] [facility], 1 14:53:34 Gastroesoph ageal reflux disease without esophagitis 477724118 Active [address], [place], [address], [place] [facility], 1 14:53:46 Problem Notes None recorded. Procedures Surgical History Date Name Laterality Status Provider Name and Address Organization Details Recorded Time 0 colonoscopy completed [facility] [address], [place], [address], [place] [facility], 12/06/2020 14:03:10 6 colonoscopy completed [facility] [address], [place], [address], [place] [facility], 08/29/2018 14:35:20 Imaging Results Imaging Date Name Status LastModified by Organization Details LastModified Time 12/06/2020 electrocardiogram completed [facility] [address], [place], [address], 12/06/2020 14:32:54 12/06/2020 electrocardiogram completed Informa tion not available 12/06/2020 13:46:26 Procedure Notes None recorded. Medical Equipment None Reported. Allergies Allergen ID Allergen Name Allergen Category Reaction Reaction Severity Criticality Documentation Date Start Date Code Code System Note Provider Name and Address Organization Details Recorded Time 87152 Cipro medicatio n anaphylax is Not available Not available 11/06/2014 86006 3 RxNorm Ngozi akhtar[place] [facility], 5 11:35:51 37081 Ceftin medicatio n anaphylax is Not available Not available 11/06/2014 80761 6 RxNorm Ngozi [place] [facility], 5 11:35:51 94935 losartan medicatio n cough Not available Not available 11/06/2014 40529 RxNorm Ngozi [place] [facility], 5 11:35:51 52901 Substance with sulfonami de structure and antibacte rial mechanism of action (substanc e) medicatio n rash Not available Not available 11/06/2014 63280 8003 SNOMED Ngozi [place]htar[place] [facility], 5 11:35:51 27590 Tekturna medicatio n cough Not available Not available 11/06/2014 11763 2 RxNorm Ngozi [place]htar [place] [facility], 5 11:35:51 19940 Prolia medicatio n arthralgi a (joint pain) moderate Not available 11/12/2019 09014 3 RxNorm Frances Gonzalez, OPHTHALMIC TECHNICIAN-C [address], [place], [address] , [facility] - [facility], 0 15:43:54 Medications Name Sig Start Date Stop Date Status Note LastModified by Organization Details LastModified Time amoxicillin 500 mg capsule 11/06 completed Not Available Not Available Not Available metformin 500 mg tablet TAKE 1 TABLET BY MOUTH ONCE DAILY WITH SUPPER active Not Available Not Available No t Available prednisone 10 mg tablet Please take 4 tablets (40 mg) by mouth once daily for 4 days; then take 3 tablets (30 mg) by mouth once daily for 3 days; then take 2 tablets (20 mg) by mouth once daily for 2 days; then take 1 tablet (10 mg) by mouth once daily for 1 day. 2024 active Not Available Not Available Not Avai lable venlafaxine ER 75 mg capsule,ext ended release 24 hr TAKE 1 CAPSULE BY MOUTH ONCE DAILY WITH FOOD active Not Available Not Available No t Available amiloride 5 mg-hydrochl orothiazide 50 mg tablet TAKE 1/2 (ONE-HALF ) TABLET BY MOUTH ONCE DAILY active Not Available Not Available No t Available azithromyci n 250 mg tablet Z reji take as directed 05/15 completed Not Available Not Available Not Available valacyclovi r 1 gram tablet TAKE 2 TABLETS BY MOUTH AT THE FIRST SIGN OF BLISTER AND 2 TABLETS 12 HOURS LATER FOR OUT BREAK OF COLD SORE. active Not Available Not Available No t Available hydrocodone 5 mg-acetamin ophen 325 mg tablet TAKE 1 TABLET BY MOUTH EVERY 6 HOURS NEEDED FOR PAIN active Not Available Not Available No t Available tretinoin 0.025 % topical cream 08/29 completed Not Available Not Available Not Available meloxicam 15 mg tablet active Not Available Not Available Not Available prednisone 20 mg tablet TAKE 2 TABLETS BY MOUTH ONCE DAILY FOR 5 DAYS active Not Available Not Available No t Available sertraline 100 mg tablet TAKE 1 TABLET BY MOUTH ONCE DAILY 05/15 completed Not Available Not Available Not Available Zyrtec 10 mg tablet Take 1 tablet twice a day by oral route. 02/20 completed Not Available Not Available Not Available acetaminoph en 300 mg-codeine 30 mg tablet active Not Available Not Available Not Available amlodipine 5 mg tablet 08/22 completed Not Available Not Available Not Available triamcinolo ne acetonide 0.1 % topical cream APPLY TO AFFECTED AREA ON LEGS TWICE DAILY NEEDED FOR RASH active Not Available Not Available No t Available Gentak 0.3 % (3 mg/gram) eye ointment active Not Available Not Available Not Available ciclopirox 8 % topical solution 08/29 completed Not Available Not Available Not Available levothyroxi ne 100 mcg tablet TAKE 1 TABLET BY MOUTH ONCE DAILY active Not Available Not Available No t Available oxycodone-a cetaminophe n 5 mg-325 mg tablet 08/22 completed Not Available Not Available Not Available levothyroxi ne 88 mcg tablet active Not Available Not Available Not Available alprazolam 0.5 mg tablet TAKE 1 TABLET BY MOUTH THREE TIMES DAILY NEEDED FOR ANXIETY active Not Available Not Available No t Available prednisolon e acetate 1 % eye drops,suspe nsion 08/22 completed Not Available Not Available Not Available ciprofloxac in 0.3 % eye drops 08/22 completed Not Available Not Available Not Available neomycin-po lymyxin-dex ameth 3.5 mg/mL-10,00 0 unit/mL-0.1 % eye drops 08/22 completed Not Available Not Available Not Available lansoprazol e 30 mg capsule,del ayed release TAKE 1 CAPSULE BY MOUTH ONCE DAILY active Not Available Not Available No t Available betamethaso ne dipropionat e 0.05 % topical cream active Not Available Not Available Not Available montelukast 10 mg tablet TAKE 1 TABLET BY MOUTH NIGHTLY active Not Available Not Available No t Available mupirocin 2 % topical ointment 08/28 completed Not Available Not Available Not Available gabapentin 100 mg capsule 08/22 completed Not Available Not Available Not Available azelastine 137 mcg (0.1 %) nasal spray USE 1 SPRAY(S) IN EACH NOSTRIL TWICE DAILY DIRECTED active Not Available Not Available No t Available levofloxaci n 500 mg tablet 11/06 completed Not Available Not Available Not Available levofloxaci n 750 mg tablet 02/20 completed Not Available Not Available Not Available methylpredn isolone 4 mg tablets in a dose pack Take 6 tablets every day by oral route as directed. 08/29 completed Not Available Not Available Not Available albuterol sulfate HFA 90 mcg/actuati on aerosol inhaler Inhale two puffs every 4-6 hours as needed 2024 active Not Available Not Available Not Avai lable ondansetron 4 mg disintegrat ing tablet DISSOLVE 1 TABLET IN MOUTH 10 MINUTES PRIOR TO EACH PREP DOSE NEEDED FOR NAUSEA active Not Available Not Available No t Available cefdinir 300 mg capsule 08/22 completed Not Available Not Available Not Available sertraline 50 mg tablet TAKE 1 TABLET BY MOUTH ONCE DAILY 05/15 completed Not Available Not Available Not Available ipratropium bromide 21 mcg (0.03 %) nasal spray USE 2 SPRAY(S) IN EACH NOSTRIL TWICE DAILY NEEDED active Not Available Not Available No t Available amoxicillin 875 mg-potassiu m clavulanate 125 mg tablet Take 1 tablet every 12 hours by oral route for 10 days. 2024 active Not Available Not Available Not Avai lable tobramycin 0.3 %-dexametha sone 0.1 % eye drops,suspe nsion 08/29 completed Not Available Not Available Not Available Restasis 0.05 % eye drops in a dropperette 11/06 completed Not Available Not Available Not Available Vigamox 0.5 % eye drops 08/22 completed Not Available Not Available Not Available Xolair 150 mg subcutaneou s solution Inject 300 mg every month by subcutane ous route. 2015 active Not Available Not Available Not Avai lable rosuvastati n 5 mg tablet TAKE 1 TABLET BY MOUTH ONCE DAILY active Not Available Not Available No t Available rosuvastati n 10 mg tablet TAKE 1 TABLET BY MOUTH ONCE DAILY 05/15 completed Not Available Not Available Not Available nitrofurant oin monohydrate /macrocryst als 100 mg capsule TAKE 1 CAPSULE BY MOUTH TWICE DAILY FOR 7 DAYS 05/15 completed Not Available Not Available Not Available trospium 20 mg tablet active Not Available Not Available No t Available Zostavax (PF) 19,400 unit/0.65 mL subcutaneou s suspension active Not Available Not Available N ot Available budesonide- formoterol HFA 160 mcg-4.5 mcg/actuati on aerosol inhaler Inhale 2 inhalatio ns twice a day by inhalatio n route for 30 days. 2024 active Not Available Not Available Not Avai lable diclofenac 1 % topical gel 2019 active Not Available Not Available Not Avai lable Durezol 0.05 % eye drops 08/22 completed Not Available Not Available Not Available Prolia active Not Available Not Availa ble Not Available Vitamin D3 50 mcg (2,000 unit) capsule Take by oral route. active Not Available Not Available No t Available EpiPen 2-Reji 0.3 mg/0.3 mL injection, auto-inject or Take 1 injector as needed by injection route as needed. 02/20 completed Not Available Not Available Not Available Ilevro 0.3 % eye drops,suspe nsion 08/22 completed Not Available Not Available Not Available Breo Ellipta 100 mcg-25 mcg/dose powder for inhalation Inhale 1 puff every day by inhalatio n route. 2014 active Not Available Not Available Not Avai lable Nasacort 55 mcg nasal spray aerosol Take 2 sprays every day by nasal route. 11/06 completed Not Available Not Available Not Available Breo Ellipta 200 mcg-25 mcg/dose powder for inhalation Inhale 1 puff every day by inhalatio n route for 30 days. 05/15 completed Not Available Not Available Not Available Spiriva Respimat 1.25 mcg/actuati on solution for inhalation Inhale 2 puffs every day by inhalatio n route. 2019 active Not Available Not Available Not Avai lable Shingrix (PF) 50 mcg/0.5 mL intramuscul ar suspension, kit 11/06 completed Not Available Not Available Not Available Vitals Date Recorded Body weight Systolic blood pressure Diastolic blood pressure Provider Name and Address Organization Details Last Updated DateTime 12/06/2020 25149.15 g 130 mm[Hg] 70 mm[Hg] terry PRINGLE - [facility], 12/06/2020 13:28:53 Date Recorded Body weight Heart rate Oxygen saturation Oxygen saturation in Arterial blood by Pulse oximetry Respiratory rate Body temperature Systolic blood pressure Diastolic blood pressure Provider Name and Address Organization Details Last Updated DateTime 4 88191.1 2 g 103 /min 98 % 98 % 18 /min 97.3 [degF] 142 mm[Hg] 80 mm[Hg] Maria T Pichardo [place] - [facility], 4 15:50:31 Date Recorded Body height Body mass index (BMI) Body weight Oxygen saturation Oxygen saturation in Arterial blood by Pulse oximetry Heart rate Respiratory rate Body temperature Systolic blood pressure Diastolic blood pressure Provider Name and Address Organization Details Last Updated DateTime 5 157.48 cm 22.5 kg/m2 36585.8 6 g 98 % 98 % 68 /min 18 /min 97 [degF] 144 mm[Hg] 80 mm[Hg] Damaris Aldana [place] [facility], 5 15:07:01 Social History Question Answer Notes LastModified by Organizat ion Details LastModified Time Tobacco Smoking Status Never Smoker Ngozi Shannan akhtar [place] [facility], 11/06/2014 11:35:50 Do You Have An Advance Directive? Yes Information not available 06/08/2024 What Is Your Level Of Alcohol Consumption? None [email or web address] Information not available 11/06/2014 [email or web address] n not available 11/06/2014 What Was The Date Of Your Most Recent Tobacco Screening? 06/02/2024 [email or web address] Information not available 06/02/2024 Do You Use Any Illicit Or Recreational Drugs? No Information not available 05/15/2023 Do You Or Have You Ever Used Any Other Forms Of Tobacco Or Nicotine? No Information not available 05/15/2023 Sex: Unknown Functional Status None recorded. Mental Status None recorded. Family History Relationship Description Onset Age of this Age Resolved Age Notes LastModified by Organization Details LastModified Time Mother Aneurysm 76 [email or web address] Not avail able 11/27/2015 14:28:12 Father Heart failure 78 [email or web address] Not available 14:28:12 Medical History Condition Response Diabetes N Anxiety Disorder Y Coronary Artery Disease N Gout N Arthritis N Kidney Stones N Hyperthyroidism N Tuberculosis N Cancer N Diverticulitis N Stroke N Asthma N Allergies N COPD N Depression Y Stress N Hypothyroidism Y GERD/Reflux N High Cholesterol N Liver Disease N Heart Disease N Pulmonary Embolism N Fibromyalgia N Hypertension Y Osteoporosis N Kidney Disease N Gynecological HistoryNo gynecological history recorded. Obstetrics History GPAL:G 0 P 0 0 0 0 Immunizations Vaccine Type Date Status Note Provider Nam e and Address Organization Details Recorded Time Influenza, high-dose, trivalent, PF 02/25/2015 completed Not Available [facility] 02:14:14 Influenza, high-dose, trivalent, PF 03/03/2019 completed Not Available [facility] 02:14:11 Influenza, adjuvanted, trivalent, PF 01/16/2020 completed YARY Drake - [facility], 01/16/2020 11:36:51 Influenza, adjuvanted, quadrivalent, PF 02/22/2021 completed YARY block - [facility], 02/22/2021 12:03:36 Past Encounters Encounter ID Performer Location Encounter Start Date Encounter Closed Date Diagnosis/Indication Diagnosis SNOMED-CT Code Diagnosis ICD10 Code Diagnosis Note [id number] [place] [id number] 11/06/2014 11:29:20 11/06/2014 13:20:26 Idiopathic urticaria [id number] Chico jasso MD OFFICE [address] [place] [id number] 12/10/2014 12:05:50 12/10/2014 13:20:07 Idiopathic urticaria 79122921 IgE-mediat ed allergic asthma [id number] [id number] [place] [id number] 8 01/01/2015 10:41:43 01/01/2015 13:09:49 Idiopathic urticaria 78918431 IgE-mediat ed allergic asthma 870919816 [id number] Krista Torres OFFICE [address] [place] [id number] 01/28/2015 12:17:11 01/28/2015 13:56:23 Idiopathic urticaria 98174843 IgE-mediat ed allergic asthma 408226986 [id number] Chico jasso MD OFFICE [address] [place] [id number] 08/07/2015 11:45:18 08/07/2015 12:35:42 Idiopathic urticaria 53729636 L50.1 Acute bronchitis 5498207 2 J20.9 [id number] Chico jasso MD OFFICE [address] [place] [id number] 10/30/2015 10:39:10 10/30/2015 12:51:01 Idiopathic urticaria 42176573 L50.1 [id number] Chico jasso MD OFFICE [address] [place] [id number] 8 11/27/2015 11:32:58 11/27/2015 12:18:35 Idiopathic urticaria 69998881 L50.1 Refractory idiopathic urticarial . She has had a good response to Xolair in the past but is reluctant to go back on it. I will check a BMP with the anticipati on that we may put her on cyclospori ne. At the outside chance that amlodipine may have been a problem I have stopped her amlodipine and placed her on a diuretic to see if this might be the trigger. I am not hopeful. Benign ess ential hypertension [id number] I10 [id number] Chico jasso MD OFFICE [address] [place] [address] [phone] 8 08/22/2016 11:00:52 08/22/2016 12:10:33 Asthma [id number] J45.30 ? T he patient's asthma is doing extremely well. They're having no nocturnal awakenings and they're short acting beta agonist use during the day is limited. I will continue the patient on thier present medication s. Benign ess ential hypertension [id number] I10 ? H ypertensio n is well controlled on present medication s we will continue. [id number] BALDEV Park OFFICE [address] [place] [address] [phone] 8 02/20/2017 10:06:39 02/20/2017 11:56:25 Posterior rhinorrhea 57261938 R09.82 Patient prescribed ipratropiu m bromide nasal spray 0.03%; 2 sprays per nostril twice daily. Patient to call should her rhinorrhea continue. Asthma 710656384 J45.40 PFTs show some decrease in lung function. FEV1 obtained today was 88% which is significan tly decreased from her FEV1? of 102%. Patient denies any increase in asthma symptoms including chest tightness, shortness of breath, or wheezing. Patient instructed to continue Symbicort 160/4.5 mcg, montelukas t 10 mg by mouth once daily, and albuterol 2 - 4 puffs as needed. Patient instructed to call should her symptoms increase or worsen. Osteoporosis 11429947 M8 1.0 Patient is followed by Dr. Narayanan for this condition and is receiving Prolia injections . Acquired hypothyroidism 913453301 E03.9 Patient is followed by Dr. Narayanan for this condition. She was instructed to continue taking levothyrox ine per Dr. Narayanan's instructio n. Benign ess ential hypertension 6243210 I10 Patient instructed to continue taking amiloride 5 mg / hydrochlor othiazide 50 mg once daily. Patient's blood pressure reading obtained at today's visit (136/70) was noted to be in good range. Patient encouraged to continue exercising and eating healthy food options including fresh fruit and vegetables , lean protein, and complex carbohydra lupe. Generalize d anxiety disorder [id number] F41.1 Stable. Patient to continue sertraline 50 mg by mouth once daily and alprazolam 0.5 mg by mouth up to three times daily as needed. Patient denies any suidical thoughts. [id number] BALDEV Park OFFICE [address] [place] [address],[address] 98616-991 8 08/28/2017 10:48:56 08/28/2017 11:36:35 Asthma 379932597 J45.40 The patient's asthma is doing extremely well. She is having no nocturnal awakenings and they're short acting beta agonist use during the day is limited. I will continue the patient on thier present medication s of Symbicort 160/4.5 mcg; montelukas t, and ProAir as needed. Unclear as to the etiology of her chest burning. Most likely she is inhaling an irritant such as cold air that is irritating her lungs and affects her asthma for a short time. Patient instructed to call should this symptom increase or worsen. Patient instructed to follow up in the office in 6 months. Patient instructed to call prior to her next visit should her symptoms increase or worsen. Posterior rhinorrhea 758 32549 R09.82 Patient instructed to continue ipratropiu m bromide nasal spray 0.03%; 2 sprays per nostril twice daily. Patient to call should her rhinorrhea increase or worsen. [id number] Chico jasso MD OFFICE [address] [place] [address] [phone] 8 02/28/2018 11:49:20 02/28/2018 13:14:46 IgE-mediated allergic asthma 699793695 J45.909 PFTs show slightly decreased lung function. Patient instructed to continue taking Symbicort 160/4.5 mcg; 2 inhalation s twice daily and montelukas t 10 mg by mouth once daily. Patient dispensed two Spiriva Respimat inhalers with instructio ns on use; 2 inhalation s once daily to use in addition to her Symbicort MDI and montelukas t. Patient instructed to return to the office in about one month to evaluate her response to treatment. Patient instructed to call prior to her next appointmen t should her symptoms increase or worsen. Polymyalgi a rheumatica 25275115 M35.3 Unclear as to the etiology of her symptoms. Appropriat e blood work was obtained to rule out a PMR diagnosis. Once results are received they will be reviewed with patient. History of kidney infection 384938464 Z87.448 A urinalysis was obtained to confirm complete resolution of her kidney infection. U/A results were normal, no signs of infection. Patient was made aware. [id number] [facility] OFFICE [address] [place] [address] [id number] 8 08/29/2018 11:12:17 08/29/2018 12:46:18 Acquired hypothyroidism 866958065 E03.9 Appropriat e laboratory results were obtained. Once results are received they will be reviewed with patient. Any changes in her levothyrox ine dose will be made at that time. Benign ess ential hypertension 0235426 I10 Patient instructed to continue taking amiloride 5 mg / hydrochlor othiazide 50 mg once daily. Patient's blood pressure reading obtained at today's visit 142/68). Patient encouraged to continue exercising and eating healthy food options including fresh fruit and vegetables , lean protein, and complex carbohydra lupe. IgE-mediat ed allergic asthma 897747118 J23.925 The patient's asthma is doing extremely well. She is not having any nocturnal awakenings and her short acting beta agonist use during the day is limited. I will continue the patient on thier present medication s. Allergic r hinitis caused by pollen 89888272 J30.1 Patient to try Nasacort nasal spray to decrease her ear popping sensation. Patient instructed to call should her symptoms increase or worsen. Osteoporosis 98765580 M8 1.0 Patient is receiving Prolia injections by Dr. Desai at [facility] in [place], [place]. Depressive disorder 3009 9574 F33.1 Patient denies any suicidal thoughts. She controls her depression with sertraline 50 mg by mouth once daily. Anxiety 10411887 F41.9 Patient has increased anxiety symptoms. Patient to continue taking alprazolam 0.5 mg as needed. Patient denies any suicidal thoughts. Eustachian tube disorder 70693584 H69.93 Patient's sensation in her ears is most likely consistent with eustachian tube disorder. Patient dispensed two samples of Nasacort with directions on use. Patient instructed to call should her symptoms increase or worsen. [id number] [facility] Park OFFICE [address] [place] [address] [phone] 8 03/03/2019 11:08:48 03/03/2019 12:28:51 IgE-mediated allergic asthma 323301157 J99.909 PFTs obtained at this visit show stable lung function. Patient dispensed 4 Spiriva 1.25 mcg Respimat inhalers with directions on use; 2 inhalation s once daily. Patient also dispensed one Symbicort 160/4.5 mcg; 2 inhalation s twice daily. Patient's ProAir inhalers were refilled at this visit. Patient instructed to call should her asthma symptoms increase or worsen. Otherwise patient to follow up in the office at her next scheduled annual physical exam on 08/2019. Administra tion of influenza vaccine 31325055 Z23 Patient received a high-dose influenza vaccine for this season per verbal consent without complicati on. Potential side effects including injection site redness and soreness was reviewed with patient prior to administra tion. Hypothyroidism 38919024 E03.9 Refilled with a 90 day supply as requested. [id number] BALDEV Park OFFICE [address] [place] [address] [phone] 8 05/12/2019 12:10:37 05/12/2019 13:30:22 Exacerbation of moderate persistent asthma 572006432 J45.41 The patient is having a flare in their asthma. This is characteri zed by increased beta agonist use, cough, and wheezing. This probably been triggered by a viral infection. Therapy will consist of a burst of oral corticoste roids as well as increasing doses of short acting beta agonist. [id number] BALDEV Park OFFICE [address] [facility] [address] [place] [address] [phone] 8 11/07/2019 09:38:18 11/07/2019 13:36:34 Adult health examination 183252913 Z00.00 The complete physical was reviewed with the patient. Appropriat e screening blood work was obtained. An EKG and urinalysis were performed. Routine health maintenanc e procedures were discussed with the patient including periodic colonoscop ies, immunizati ons, including influenza, pneumococc al, and shingles. Fall risk was assessed. In addition, depression screening using the PHQ2 was undertaken . Acquired hypothyroidism 820343855 E03.9 Appropriat e laboratory results were obtained. Once results are received they will be reviewed with patient. Patient is under the direction of an endocrinol ogist. Benign ess ential hypertension 2897479 I10 Patient instructed to continue taking amiloride 5 mg / hydrochlor othiazide 50 mg once daily. Appropriat e blood work was obtained. Once results are received they will be reviewed with patient. Depressive disorder 3852 2005 F33.1 Patient denies any suicidal thoughts. She controls her depression with sertraline 50 mg by mouth once daily. IgE-mediat ed allergic asthma 978440563 J45.909 PFTs obtained at this visit show stable lung function. Patient to continue on her current treatment regimen of Symbicort 160/4.5 mcg; 2 inhalation s twice daily; Spiriva 1.25 mcg; 2 inhalation s once daily, and montelukas t . Patient to call should her symptoms increase or worsen. Vitamin D deficiency 347 12374 E55.9 Patient to continue her vitamin D supplement . A vitamin D level was obtained. Once results are received they will be reviewed with patient. Hyperlipidemia 69522273 E78.5 Patient has a PMH of hyperlipid emia. A fasting lipid level was obtained. Once results are received they will be reviewed with patient. Acute cystitis 27996273 N30.00 Patient's reported symptoms and U/A results are consistent with an acute cystitis. Patient was treated with a 5 day course of Macrobid with instructio ns on use. Patient to return to the office in 4 - 6 weeks to obtain another urine sample. Prediabetes 373628718 R7 3.03 Patient has a PMH of prediabete s for which she is under the direction of an endocrinol ogist. A hemoglobin A1C was obtained. Once results are received they will be reviewed with patient. Exposure t o SARS-CoV-2 101128095 Z20.828 Patient reports a previous exposure to coronaviru s and thinks that she had the virus. Therefore antibody levels were obtained at this visit. Once results are received they will be reviewed with patient. Screening for malignant neoplasm of breast 998355012 Z12.39 Patient to schedule a mammogram as soon as it is convenient . Osteoporosis 58637218 M8 1.0 Patient is receiving Prolia injections by Dr. Desai at [facility] in [place]. Gastroesop hageal reflux disease without esophagitis 155516708 K21.9 Patient to continue taking lansoprazo le in order to control her GERD. [id number] Chico jasso MD OFFICE [address] [place] [address] [phone] 8 12/26/2019 11:06:08 12/26/2019 11:37:08 Urinary tract infectious disease 17239408 N39.0 Hypercholesterolemia 136 46991 E78.00 Blood gluc ose outside reference range 330965731 R73.09 [id number] Chico jasso MD OFFICE [address] [place] [address] 58856-972 8 01/12/2020 10:08:34 01/12/2020 10:48:26 Urinary tract infectious disease 17847954 N39.0 Chico jasso MD OFFICE [address] [place] [address],[address] [place] [address] [phone] 8 01/16/2020 11:22:13 01/16/2020 11:58:03 Administration of influenza vaccine 19320772 Z23 [id number] Chico jasso MD OFFICE [facility] [address] [place] [address] [phone] 8 05/21/2020 11:41:17 05/21/2020 16:08:09 Urinary tract infectious disease 42826880 N39.0 [id number] [facility] Park OFFICE [address] [place] [address] [place] [address] [phone] 8 12/06/2020 12:43:27 12/06/2020 15:00:20 Adult health examination 861639783 Z00.00 The complete physical was reviewed with the patient. Appropriat e screening blood work was obtained. An EKG and urinalysis were performed. Routine health maintenanc e procedures were discussed with the patient including periodic colonoscop ies, immunizati ons, including influenza, pneumococc al, and shingles. Fall risk was assessed. In addition, depression screening using the PHQ2 was undertaken . Acquired hypothyroidism 198525173 E03.9 Appropriat e laboratory results were obtained. Once results are received they will be reviewed with patient. Patient is under the direction of an endocrinol ogist. Benign ess ential hypertension 2126321 I10 Patient instructed to continue taking amiloride 5 mg / hydrochlor othiazide 50 mg once daily. Appropriat e blood work was obtained. Once results are received they will be reviewed with patient. Depressive disorder 1123 3652 F33.1 Patient denies any suicidal thoughts. She controls her depression with sertraline 50 mg by mouth once daily. IgE-mediat ed allergic asthma 568017488 J45.909 Unforthumboldtt nelson we were unable to obtain spirometry testing today. However she denies any increased asthma symptoms which require more albuterol use. She denies any night time awakenings due to her asthma symptoms. She will continue on her current asthma treatment regimen. Osteoporosis 21419484 M8 1.0 Patient is receiving Prolia injections by Dr. Desai at [facility] in [place], [place]. Blood gluc ose outside reference range 038083435 R73.09 A hemoglobin A1C was obtained. Once results are received they will be reviewed with patient. She will continue on metformin 500 mg. Mixed hyperlipidemia 267 378376 E78.2 A fasting lipid panel was obtained. Once results are received they will be reviewed with patient. She will continue on rosuvastai n 10 mg by mouth once daily. Gastroesop hageal reflux disease without esophagitis 147380475 K21.9 Lansoprazo le was refilled per her request. She will continue on lansoprazo le 30 mg by mouth once daily. Screening for malignant neoplasm of breast 798556055 Z12.39 Patient to schedule a mammogram as soon as it is convenient . Posterior rhinorrhea 758 68364 R09.82 Patient instructed to continue ipratropiu m bromide nasal spray 0.03%; 2 sprays per nostril twice daily. Patient to call should her rhinorrhea increase or worsen. [id number] Chico jasso MD OFFICE [address] [place] [address] 8 02/22/2021 11:50:07 02/22/2021 13:06:02 Administration of influenza vaccine 67870639 Z23 Moderate p ersistent asthma 721922753 J45.40 [id number] Chico jasso MD OFFICE [address] [place] [address] 8 05/15/2023 15:31:43 05/15/2023 17:03:29 Idiopathic urticaria 68404834 L50.1 She will try Xyzal 5 mg twice daily to see if we can prevent her urticaria. We may need to do further evaluation if this fails to work. [id number] [facility] Park OFFICE [address] [place] [address] 8 06/02/2024 14:49:54 06/02/2024 16:24:47 Influenza caused by Influenza A virus 217905258 J09.X2 Patient's reported symptoms are consistent with influenza. Therefore a rapid flu swab was obtained during the visit. Results were positive for influenza A. Patient was made aware. COVID-19 566555397 U07.1 Patient's reported symptoms are consistent with COVID-19. Therefore a rapid COVID-19 swab was obtained during the visit. Results were negative. Patient was made aware. Postviral cough 44844689 4 R05.3 Exacerbati on of moderate persistent asthma 102153104 J45.41 The patient is having a flare in their asthma. This is characteri zed by increased beta agonist use, cough, and wheezing. This probably been triggered by a viral infection. Therapy will consist of a burst of oral corticoste roids as well as increasing doses of short acting beta agonist. Acute bronchitis 4341877 2 J20.9 The patient's symptoms are most compatible with a acute bronchitis with cough productive of purulent secretions . The patient was begun on an antibiotic . If symptoms do not respond promptly a chest x-ray will be obtained. Health Concerns Section Related Observation LastModified by Organization Detai ls LastModified Time None Recorded Concern Status LastModified by Organization Details LastModified Time None Recorded Advance Directives Directive Y: Payers Encounter Date Sequence Insurance Name Policy Number Policy Nelson Covered Member ID Nelson Member ID Guarantor Name 05/21/2020 1 [place] Tawnya D Venarsky [id number] Tawnya Venarsky 05/21/2020 2 [place] [id number] Tawnya D Venarsky [id number] Tawnya Venarsky 12/06/2020 1 [place] Tawnya D Venarsky [id number] Tawnya Venarsky 12/06/2020 2 [place] [id number] Tawnya D Venarsky [id number] Tawnya Venarsky 02/22/2021 1 [place] Tawnya D Venarsky [id number] Tawnya Venarsky 02/22/2021 2 [place] [id number] Tawnya D Venarsky [id number] Tawnya Venarsky 05/15/2023 1 [place] Tawnya D Venarsky [id number] Tawnya Venarsky 05/15/2023 2 [place] [id number] Tawnya Huang [id number] Tawnya Huang 06/02/2024 2 [place] [id number] Tawnya Huang [id number] Tawnya Huang 06/02/2024 1 [place] Tawnya Huang [id number] Tawnya Huang Notes Date Note Type Note Provider Name and Address Organization Details Recorded Time 12/06/2020 text/html ACT TestReported bypatient.Asthma Control TestIn the past 4 weeks, how much time did your asthma keep you from getting as much done as you would like? (5); How often have you had shortness of breath5; How often did your asthma symptoms wake you up5; How often did you use your rescue inhaler5; How would you rate your asthma control5; total score 25 This delightful 74 year-old female comes to the office for her annual physical exam. She is overall doing quite well physically however she notes that she has suffered the loss of her sister and more recently her aunt. These events have been difficult to endure in light of COVID-19. In addition, her has been difficult to deal with as he is in constant pain and doesn't want to go out. She is concerned that he needs to be placed on a diet and needs to obtain more exercise. She however feels good overall. She has a PMH of hypertension, hyperlipidemia, hypothyroidism, posterior rhinorrhea, IgE-mediated allergic asthma and GERD all of which are well controlled on medications. She is up to date with her vaccinations and screening procedures including her mammogram and colonoscopy. No other health concerns were discussed at this visit. Frances Gonzalez, CANDIE-C [address], [place], [address], [facility], 12/06/2020 14:59:49 05/15/2023 text/html Tawnya comes in with the acute onset of urticaria about 2 weeks ago. She has not taken any new medications. She does not use any xavi-rwc-rtsnzez nonsteroidals. She has not had any viral syndromes. She did have a history of urticaria in the distant past and actually was placed on Xolair for a very short period of time. She denies any problems with angioedema, difficulty swallowing or difficulty breathing. He has not tried any antihistamines. She did try a burst of oral steroids and had no improvement Chico Carroll MD [address], [place], [address], [facility], 05/15/2023 17:32:12 06/02/2024 text/html ACT TestReported bypatient.Asthma Control TestIn the past 4 weeks, how much time did your asthma keep you from getting as much done as you would like? (3); How often have you had shortness of breath3; How often did your asthma symptoms wake you up3; How often did you use your rescue inhaler3; How would you rate your asthma control3; total score 15 Tawnya, a delightful 78 year-old female returns to the office with concerns of increased asthma symptoms including shortness of breath, wheeze, and a persistent cough. In addition, she also has nasal congestion, sinus pressure as well as general malaise and fatigue. She has been sick for quite some time. She has had to use her albuterol more often and her asthma symptoms have disrupted her sleep.She notes that her cough is productive with discolored secretions.She also had a fever over the weekend.No other health concerns were discussed at this visit. Frances Gonzalez, CANDIE-C [address], [place], [address], [facility], 06/08/2024 16:37:56 OBGyn Episode No OBEpisode recorded.
--- OUTSIDE RECORDS SUMMARY | 2024-06-11 12:14 | XMS_ITS | Clinical Summary ---
Author Organization [facility] Address [address] [place] [address] Care Team Providers Care Energy Attorney Name Role Phone aGvin Yan MD Primary Care Provider [phone] Allergies Active Allergy Reactions Criticality Noted Date Comments Adhesive Tape-Silicones Rash Low 04/23/2018 Cefuroxime Axetil Anaphylaxis High 04/23/2018 Ciprofloxacin Anaphylaxis,Other (See Comments) High 04/23/2018 Reaction: THROAT TIGHTNESS Denosumab Other (See Comments) Medium 06/03/2020 Latex Hives High 01/23/2017 Leflunomide Unknown 06/05/2022 Losartan Cough Low 10/28/2018 Sulfa (Sulfonamide Antibiotics) Rash Low 04/23/2018 Medications metFORMIN (GLUCOPHAGE) 500 mg tablet Take 500 mg by mouth daily with breakfast . 1 04/21/20 18 Active lansoprazole (PREVACID) 30 mg Capsule, Delayed Release(E.C.) Take 30 mg by mouth daily . 1 04/21/20 18 Active montelukast (SINGULAIR) 10 mg tablet Take 10 mg by mouth daily . 1 04/21/20 18 Active aMILoride-hydroCHL OROthiazide (MODURETIC) 5-50 mg Tablet 2 02/06/20 18 Active ALPRAZolam (XANAX) 0.5 mg tablet Take 0.5 mg by mouth nightly as needed . 0 02/06/20 18 Active levothyroxine 100 mcg tablet Take 100 mcg by mouth daily . 0 02/14/20 18 Active Cholecalciferol, Vitamin D3, 2,000 unit Capsule Take by mouth. Ac tive denosumab (PROLIA) 60 mg/mL Syringe Inject 60 mg by subcutaneous injection one time only. Active budesonide-formote rol (SYMBICORT) 160-4.5 mcg/actuation HFA Aerosol Inhaler Take 2 Puffs by inhalation 2 times daily. Active albuterol HFA 90 mcg inhaler Take 2 Puffs by inhalation every 6 hours as needed for Shortness of Breath. Active zoster vaccine recombinant, adjuvanted, RZV, (SHINGRIX) 50 mcg/0.5 mL Suspension for Reconstitution Shingrix (PF) 50 mcg/0.5 mL intramuscular suspension, kit Active valACYclovir (VALTREX) 1 gram tablet valacyclovir 1 gram tablet Active triamcinolone acetonide (NASACORT AQ) 55 mcg nasal spray daily Acti ve acetaminophen (TYLENOL) 500 mg tablet Take 500 mg by mouth. Active denosumab (PROLIA) 60 mg/mL Syringe Prolia Act obey zoster vaccine recombinant, adjuvanted, RZV, (SHINGRIX) 50 mcg/0.5 mL Suspension for Reconstitution Shingrix (PF) 50 mcg/0.5 mL intramuscular suspension, kit Active diclofenac sodium (VOLTAREN) 1 % gel diclofenac 1 % topical gel Active rosuvastatin (CRESTOR) 10 mg tablet rosuvastatin 10 mg tablet TAKE 1 TABLET BY MOUTH ONCE DAILY Active ipratropium bromide (ATROVENT) 21 mcg (0.03 %) [place], Non-Aerosol ipratropium bromide 21 mcg (0.03 %) nasal spray USE 2 SPRAY(S) IN EACH NOSTRIL TWICE DAILY NEEDED Active ferrous fumarate (FERROCITE,HEMOCYT E) 324 mg (106 mg iron) Tablet Take by mouth. Ac tive cyanocobalamin (VITAMIN B-12) 1,000 mcg Tablet, Sublingual Take 1,000 mcg by mouth daily. Active gabapentin (NEURONTIN) 300 mg capsule Take 1 Capsule (300 mg) by mouth 2 times daily. 60 Capsule 1 06/13/19 24 Active Active Problems Problem Noted Date Diagnosed Date Type 2 diabetes mellitus without complication Age related osteoporosis 04/23/2018 Encounters Date Type Department Care Team Description 06/05/2024 External Device Data [facility] ABSTRACTION Provider, Abstract 06/04/2024 External Device Data [facility] ABSTRACTION Provider, Abstract 06/03/2024 External Device Data [facility] ABSTRACTION Provider, Abstract 05/02/2024 Telephone [facility] - [place] [address] [place] [id number] Mikey aBsilio MD Bone Density from Last 3 Months Immunizations Immunization Administration Dates Next Due (Moderna Bivalent)(6 Mos Up) COVID-19 Vaccine - Emergency Use Authorization, MRNA(Pf) 50 Mcg/0.5 Ml Im Susp 03/28/2022 Family History Medical History Relation Name Comments Cancer Brother 1 Lung Cancer Brother 2 Heart Disease Father Heart Disease Mother Heart defect Mother Cancer Sister 1 Cervical Cancer Sister 1 Cancer Sister 2 Relation Name Status Comments Brother 1 Brother 2 Father Mother Sister 1 Alive Sister 2 Alive Social History Tobacco Use Types Packs/Day Years Used Date Smoking Tobacco: Never Smokeless Tobacco: Never Tobacco Cessation:Counseling Given: Not Answered Alcohol Use Standard Drinks/Week Comments No 0 (1 standard drink = 0.6 oz pur e alcohol) Comments No Sex and Gender Information Value Date Recorded Sex Assigned at Female 03/11/2024 9:49 AM CDT Legal Sex Female 3:33 PM COLLECTIONS AGENT Gender Identity Female 03/11/2024 9:49 AM CDT Sexual Orientation Not on file Last Filed Vital Signs Vital Sign Reading Time Taken Comments Blood Pressure 139/81 12/12/2023 9:31 AM CDT Pulse 89 12/12/2023 9:31 AM CDT Temperature 36.6 ??C (97.8 ??F) 12/12/2023 9:31 AM CD T Respiratory Rate 18 12/12/2023 9:31 AM CDT Oxygen Saturation 90% 12/12/2023 9:31 AM CDT Inhaled Oxygen Concentration - - Weight 53.5 kg (118 lb) 12/12/2023 9:31 AM CDT Height 157.5 cm (5' 2 ) 03/14/2022 1:56 PM CDT Body Mass Index 21.58 03/14/2022 1:56 PM CDT Plan of Treatment Upcoming Encounters Date Type Department Care Team (Late st Contact Info) Description 06/24/2024 11:00 AM COLLECTIONS AGENT Office Visit [facility] [address] [place] [phone] [place] [address] [place] [address] [address] [place] [address] Health Maintenance Due Date Last Done Comments DIABETES MICROALBUMIN ANNUAL SCREEN 1964 LDL CHOLESTEROL ANNUAL 1964 DTAP/TDAP/TD VACCINES (1 - Tdap) 1965 Traditional Medicare (ACO) A nnual Wellness Visit 1965 RSV VACCINE (60+ or ) (1 - 1-dose 75+ series) 2021 DIABETES ANNUAL RETINAL EXAM 07/13/202206/2021, 01/12/2021, 01/28/2020, Additional history exists INFLUENZA VACCINE (#1) 2023 3, 01/25/2022, 02/22/2021, Additional history exists DIABETES ANNUAL FOOT EXAM 01/27/2024 01/26/2023 DIABETES HBA1C Q 6 MONTHS 06/04/20242023, 04/27/2023, 01/26/2023, Additional history exists ZOSTER VACCINE Completed 11/27/2018, 09/25/2018 PNEUMOCOCCAL VACCINE 65+ YEARS Completed 06/07/2019 , 06/07/2018 OSTEOPOROSIS SCREENING Completed 3, 05/27/2020, 05/27/2020, Additional history exists COLORECTAL SCREENING Discontinued 12/14/2022, 11/20/2019, 11/13/2019, Additional history exists Colorectal Cancer Screening Discontinued COVID-19 Vaccine Completed 03/07/2024, , 03/28/2022 FIT-DNA Q 3 years Discontinued FIT/FOBT Q 1 year Discontinued Flex Sig/CT Colonography Q 5 years Discontinued Procedures Procedure Name Priority Date/Time Associated Diagnosis Comments XR DEXA BONE DENSITY AXIAL 1 OR MORE SITES Routine 05/27/2020 Age related osteoporosis, unspecified pathological fracture presence from Last 3 Months or Most Recently Relevant to Health Maintenance Results * XR DEXA BONE DENSITY AXIAL 1 OR MORE SITES (05/27/2020) Anatomical Region Laterality Modality Other Mikey Basilio MD DIAGNOSTIC IMAGING ORDERABLES F inal Result from Last 3 Months or Most Recently Relevant to Health Maintenance Insurance MEDICARE PART A AND B [facility] SUPP MEDICARE PART A AND B BS SUPP Care Teams Energy Attorney Relationship Specialty Start Date End Date Gavin Yan MD PCP - General Internal Medicine 12/08/22
--- OUTSIDE RECORDS SUMMARY | 2024-06-11 12:14 | XMS_ITS | Clinical Summary ---
Author Organization [facility] [address] Address [address] [place] [phone] Care Team Providers Care Principal Cyber Engineer Name Role Phone Gavin Yan MD Primary Care Provider Allergies Active Allergy Reactions Criticality Noted Date Comments Adhesive Tape-Silicones Rash Reaction: RASH Aliskiren Cough Low Reaction: COUGH, Cefuroxime Other (See comments),Anaphylaxis High Reaction: THROAT TIGHTNESS Cefuroxime Axetil Anaphylaxis High 04/23/2018 Ciprofloxacin Other (See comments),Anaphylaxis High 04/23/2018 Reaction: THROAT TIGHTNESS Denosumab Joint pain Medium 02/08/2021 Latex Hives Medium 01/23/2017 Losartan Cough Reaction: COUGH, Sulfa (Sulfonamide Antibiotics) Rash Reaction: RASH Medications denosumab (PROLIA) 60 mg/mL syringe syringe once. Active triamcinolone (NASACORT) 55 mcg nasal inhaler daily Active valACYclovir (VALTREX) 1 gram tablet TAKE 2 TABLETS AT THE FIRST SIGN OF BLISTER AND 2 TABLETS 12 HOURS LATER FOR OUT BREAK OF COLD SORE 60 tablet 02/11/20 21 Active budesonide-gly copyr-formoter ol 160-9-4.8 mcg/actuation HFA aerosol inhaler Inhale Active cyanocobalamin (Vitamin B-12) 1,000 mcg sublingual tablet Take 1 tablet (1,000 mcg total) by mouth daily Active ferrous fumarate 324 mg (106 mg iron) tablet Take by mouth Act obey azelastine (ASTELIN) 137 mcg (0.1 %) nasal spray Administer 1 spray into each nostril 2 (two) times a day Use in each nostril as directed 30 mL 08/01/19 Active albuterol HFA (ProAir HFA) 90 mcg/actuation inhaler Inhale 2 puffs 4 (four) times a day 3 each 04/09/20 Active aMILoride-hydr oCHLOROthiazid e (MODURETIC) 5-50 mg tablet Take 1 tablet by mouth daily 90 tablet 3 12/03/19 24 Active metFORMIN (GLUCOPHAGE) 500 mg tablet Take 1 tablet (500 mg total) by mouth 2 (two) times a day with meals 180 tablet 3 12/03/19 24 Active tiZANidine (ZANAFLEX) 2 mg tablet Take 1 tablet (2 mg total) by mouth every 6 (six) hours as needed for muscle spasms 60 tablet 2 01/23/20 24 Active levothyroxine (SYNTHROID) 75 mcg tablet Take 1 tablet (75 mcg total) by mouth echometer engineer before breakfast 90 tablet 3 01/29/20 24 Active blood glucose diagnostic (glucose blood) strip Test once daily Dx code E11.9 100 each 01/31/20 24 025 Active gabapentin (NEURONTIN) 300 mg capsule Take 1 capsule (300 mg total) by mouth 3 (three) times a day 90 capsule 1 02/29/20 24 025 Active insulin glargine 100 unit/mL (3 mL) pen for injection Inject 12 Units under the skin nightly 3 mL 03/10/20 24 Active montelukast (SINGULAIR) 10 mg tablet Take 1 tablet by mouth nightly 90 tablet 03/24/20 24 Active celecoxib (CeleBREX) 200 mg capsuleIndicat ions:Pain Take 1 capsule (200 mg total) by mouth 2 (two) times a day 60 capsule 03/24/20 24 Active lansoprazole (PREVACID) 30 mg capsule Take 1 capsule by mouth once daily 90 capsule 04/21/20 24 Active rosuvastatin (CRESTOR) 5 mg tablet Take 1 tablet by mouth once daily 90 tablet 04/21/20 24 Active venlafaxine XR (EFFEXOR-XR) 75 mg 24 hr capsule TAKE 1 CAPSULE BY MOUTH ONCE DAILY WITH FOOD 90 capsule 05/05/20 24 Active ALPRAZolam (XANAX) 0.5 mg tablet TAKE 1 TABLET BY MOUTH THREE TIMES DAILY NEEDED FOR ANXIETY 90 tablet 06/09/19 25 Active ALPRAZolam (XANAX) 0.5 mg tablet TAKE 1 TABLET BY MOUTH THREE TIMES DAILY NEEDED FOR ANXIETY 90 tablet 05/05/20 24 025 Discontinued azithromycin (ZITHROMAX) 250 mg tablet Take 2 tabs (500 mg) by mouth today, than 1 tab (250 mg) daily for 4 days. 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 Some bruising. Some headache Elevated serum creatinine 12/18/2022 Assessment & Plan (12/18/2022 1:47 PM CDT): Reviewed her lab work. Will repeat a creatinine I believe this is a lab error when looking at her old numbers BMI 26.0-26.9,adult 07/31/2022 Assessment & Plan (04/27/2023 10:55 AM ADMITTANCE ATTENDANT): BMI Follow-up includes: nutrition counseling, exercise counseling, and education provided. Assessment & Plan (01/26/2023 9:50 AM CDT): BMI Follow-up includes: nutrition counseling, exercise counseling, and education provided. Assessment & Plan (10/31/2022 10:46 AM CDT): BMI Follow-up includes: nutrition counseling, exercise counseling, and education provided. Assessment & Plan (07/31/2022 10:55 AM CDT): BMI Follow-up includes: nutrition counseling, exercise counseling and education provided. Inflammatory arthritis 01/25/2022 Assessment & Plan (12/18/2022 1:47 PM CDT): Patient needs follow-up for what was thought to be seronegative rheumatoid arthritis with Rheumatology we will refer again for follow-up Assessment & Plan (05/03/2022 7:54 AM ADMITTANCE ATTENDANT): Currently under the treatment of Rheumatology for inflammatory arthritis continues on leflunomide. They are trying to increase the dose we discussed possibly going to [facility] pharmacy as the cost is becoming prohibitive Assessment & Plan (01/25/2022 1:46 PM CDT): follows with rheum, unable to tolerate MTX She will see Rheumatology again soon MRI as above does show evidence of inflammatory arthritis Encounter for Medicare annual wellness exam 01/12 Assessment & Plan (01/26/2023 9:57 AM CDT): A Medicare Annual Wellness Visit (AWV) was done today as well. The patient filled out a depression screen, functional assessment screen, health risk assessment, and other physicians list. All the elements of this exam were completed as outlined by CMS. Please note that the documentation of this is split between paper documentation and this electronic record. Assessment & Plan (01/25/2022 10:39 AM CDT): A Medicare Annual Wellness Visit (AWV) was done today as well. The patient filled out a depression screen, functional assessment screen, health risk assessment, and other physicians list. All the elements of this exam were completed as outlined by CMS. Please note that the documentation of this is split between paper documentation and this electronic record. Myxoma 09/06/2021 Assessment & Plan (09/06/2021 8:59 AM CDT): Patient has evidence of a small questionable 1 cm round mass of her right inner calf. This situation occurred in 2018 where she had an excision that showed myxoma see below. I will refer her back to Dr. Kwon for next steps OPERATIVE REPORT ?? FACILITY ID: [facility] ?? SURGEON Edilson Kwon MD ?? PREOPERATIVE DIAGNOSIS Soft tissue mass, right calf. ?? POSTOPERATIVE DIAGNOSIS Soft tissue mass, right calf. ?? PROCEDURE Wide excision mass right calf. ?? SERVICE PARTS COORDINATOR Augustus Leach MD ?? ANESTHESIA General. ?? INDICATIONS This is a 71-year-old female with a soft tissue mass located in the posterolateral aspect of the right proximal calf. The preoperative imaging studies show this to be approximately 2 x 3 cm mass with signal characteristics consistent with a myxoma. She is here for surgical excision. ?? SURGICAL PATHOLOGY REPORT FINAL Patient Name: MIHAELA HUANG ? Address: [address] [place] [address] ??Service: ??Orthopedic Surgery ??[place], [place] ??[address] ??Location: ??[facility] Taken: 07/17/2017 Gender: F ?? Received: 07/17/2017 : 1945 (Age: 71) ??Hospital #: ??[id number] Accessioned: 07/17/2017 ?Patient Type: ??MERGED WITH [facility] SDS Reported: 07/24/2017 ? Physician(s): Edilosn Kwon M.D. ? Diagnosis: Soft tissue, right calf, wide excision ? - Intramuscular myxoma, 2.8 cm (see comment) Moderate persistent asthma without complication 06/07/2021 Assessment & Plan (10/31/2022 3:22 PM CDT): Continues on a number of respiratory medications with moderate to significant control Assessment & Plan (10/24/2021 8:53 AM CDT): Continues on a number of respiratory medications with moderate to significant control Gastroesophageal reflux disease without esophagi tis 12/06/2020 Assessment & Plan (08/13/2023 8:45 AM CDT): Reports no significant heartburn at this time Assessment & Plan (04/30/2023 9:53 AM ADMITTANCE ATTENDANT): Reports no significant heartburn at this time Assessment & Plan (01/25/2022 1:46 PM CDT): Reports no significant heartburn at this time Assessment & Plan (08/16/2021 2:24 PM CDT): Reporting no current significant symptoms we discussed continuing Prevacid/PPI Assessment & Plan (06/08/2021 9:55 AM ADMITTANCE ATTENDANT): Reports no significant heartburn at this time will follow her Allergic rhinitis 12/06/2020 Mixed hyperlipidemia 12/06/2020 Assessment & Plan (08/13/2023 8:44 AM CDT): She is due for redraw fasting lipid profile today Assessment & Plan (01/25/2022 1:46 PM CDT): She is due for redraw fasting lipid profile today Depressive disorder 10/25/2019 Assessment & Plan (04/30/2023 9:53 AM ADMITTANCE ATTENDANT): Patient continues to relate quite a bit of frustrations with dealing with her who has multiple illnesses. Effexor 75 appears to be working for her Assessment & Plan (07/31/2022 1:06 PM CDT): Patient continues to relate quite a bit of frustrations with dealing with her who has multiple illnesses. She does not believe that the Zoloft 100 is working very well we will switch her to Effexor 75. We discussed various other options including health caregivers however she does not believe he will be in favor of such things Assessment & Plan (05/03/2022 7:53 AM ADMITTANCE ATTENDANT): She is having quite a bit of frustrations with her who is ill. Continues on current medications. Changes at this time Assessment & Plan (01/25/2022 1:46 PM CDT): Reports quite a bit of frustrations regarding her continues on antidepressant medication Type 2 diabetes mellitus without complication (C MS/HCC) 10/24/2019 Assessment & Plan (12/04/2023 8:06 AM CDT): History is concerning for elevated blood sugar including thirst/weight loss. Recheck A1c today. Adjust medications based on results Recheck A1c today Assessment & Plan (08/13/2023 8:43 AM CDT): We reviewed her last A1c which was excellent I think we can safely follow on current regimen of metformin. A1c due today Diabetic control has been 6.5 with review of patient's last a1c, I have reviewed and addressed all of the other diabetic benchmarks including the diabetic eye exam, foot exam, renal protection, reaching LDL goal of <100. Recheck A1c today Assessment & Plan (10/31/2022 3:33 PM CDT): We reviewed her last A1c which was excellent I think we can safely follow on current regimen of metformin. A1c due today Diabetic control has been 6.5 with review of patient's last a1c, I have reviewed and addressed all of the other diabetic benchmarks including the diabetic eye exam, foot exam, renal protection, reaching LDL goal of <100. Recheck A1c today Assessment & Plan (07/31/2022 1:06 PM CDT): We reviewed her last A1c which was excellent I think we can safely follow on current regimen of metformin. A1c due today Diabetic control has been 6.5 with review of patient's last a1c, I have reviewed and addressed all of the other diabetic benchmarks including the diabetic eye exam, foot exam, renal protection, reaching LDL goal of <100. Recheck A1c today Assessment & Plan (05/03/2022 7:54 AM ADMITTANCE ATTENDANT): We reviewed her last A1c which was excellent I think we can safely follow on current regimen of metformin. A1c due today Diabetic control has been 6.5 with review of patient's last a1c, I have reviewed and addressed all of the other diabetic benchmarks including the diabetic eye exam, foot exam, renal protection, reaching LDL goal of <100. Assessment & Plan (01/25/2022 1:47 PM CDT): We reviewed her last A1c which was excellent I think we can safely follow on current regimen of metformin. A1c due today Acute exacerbation of IgE mediated allergic asth ma 10/22/2018 Acquired hypothyroidism 10/22/2018 Assessment & Plan (12/04/2023 8:06 AM CDT): We will recheck her thyroid functions today in light of her recent 21 lb weight loss and adjust dose as needed Assessment & Plan (04/30/2023 9:52 AM ADMITTANCE ATTENDANT): We will redraw thyroid functions with next lab visit Assessment & Plan (01/26/2023 10:05 AM CDT): We will redraw thyroid functions with next lab visit Assessment & Plan (10/31/2022 3:22 PM CDT): We will redraw thyroid functions with next lab visit Assessment & Plan (01/25/2022 1:45 PM CDT): We will redraw thyroid functions today Assessment & Plan (08/16/2021 2:23 PM CDT): Reviewed her last thyroid lab tests continue replacement Assessment & Plan (06/08/2021 9:55 AM ADMITTANCE ATTENDANT): Recheck thyroid functions today Benign essential hypertension 10/22/2018 Assessment & Plan (04/30/2023 9:53 AM ADMITTANCE ATTENDANT): Blood pressure is under excellent control on current regimen. Assessment & Plan (01/26/2023 10:06 AM CDT): Blood pressure is under excellent control on current regimen. Elevated BP today/ some traffic issues and fall yesterday Assessment & Plan (10/31/2022 3:22 PM CDT): Blood pressure is under excellent control on current regimen Assessment & Plan (01/25/2022 1:45 PM CDT): Blood pressure is under excellent control on current regimen Assessment & Plan (10/19/2021 1:30 PM CDT): Very well controlled on current regimen Assessment & Plan (08/16/2021 2:23 PM CDT): Blood pressure is under excellent control currently will continue on current medication Assessment & Plan (06/08/2021 9:55 AM ADMITTANCE ATTENDANT): Blood pressure is fairly well controlled on current regimen Hives 10/22/2018 Osteoporosis 04/23/2018 Assessment & Plan (08/13/2023 8:43 AM CDT): Continues on Prolia therapy. She is not due for a bone density scan for another year Assessment & Plan (05/03/2022 7:53 AM ADMITTANCE ATTENDANT): Continues on Prolia therapy. She is not due for a bone density scan for another year Assessment & Plan (06/08/2021 9:55 AM ADMITTANCE ATTENDANT): Continues on Prolia therapy near her home in [facility] Arthralgia of hip 07/04/2017 Rectal bleeding 01/27/2017 Third degree hemorrhoids 01/27/2017 Multiple melanocytic nevi 02/28/2016 Seborrheic keratoses 02/28/2016 History of nonmelanoma skin cancer 02/28/2016 Onychomycosis of toenail 02/28/2016 Photoaged skin 02/28/2016 Chronic pain 01/02/2012 Assessment & Plan (10/19/2021 1:58 PM CDT): She is describing some heel pain bilaterally which sounds mostly like plantar fasciitis we describe stretches etc. Low back pain 01/02/2012 Assessment & Plan (10/31/2022 3:21 PM CDT): Reports occasional low back pain no significant issues currently Neck pain 01/02/2012 Knee pain 12/30/2011 Resolved Problems Problem Noted Date Diagnosed Date Resolved Date Exposure to severe acute res piratory syndrome coronavirus 2 (SARS-CoV-2) 11/07/2019 01/25/2022 Arthritis 01/02/2012 01/25/2022 Overview (10/22/2018): RHEUMATOID ARTHRITIS Encounters Date Type Department Care Team Description 06/03/2024 Orders Only [facility] Director Of Sales Support Care [address] [place] [phone] Gavin Yan MD 05/10/2024 Orders Only [facility] Director Of Sales Support Care [address] [place] [phone] Gavin Yan MD 04/14/2024 9:24 AM ADMITTANCE ATTENDANT - 04/14/2024 11:59 PM ADMITTANCE ATTENDANT Hospital Encounter [facility] [address] [place] [phone] Durga Vasquez MD Lumbar radiculopathy (Primary Dx); Back pain with right-sided radiculopathy Discharge Disposition: Discharge to home or self care 03/31/2024 Orders Only [facility] Orthopaedic Surgery [address] [place] [address] [address] [place] [phone] Shana Galarza PA Lumbar radiculopathy (Primary Dx); Back pain with right-sided radiculopathy 03/31/2024 Telephone [facility] Orthopaedic Surgery [address] [place] [address] [address] [place] [phone] Shana Galarza PA 03/28/2024 Telephone [facility] Orthopaedic Surgery [address] [place] [phone] Nikita Blackman CMA 03/25/2024 Orders Only [facility] Neurosurgery [address] [place] [address] [address] [place] [phone] Arnulfo Woodard MD Intervertebral disc disorder with radiculopathy of lumbar region (Primary Dx); Acute midline low back pain, unspecified whether sciatica present; Degeneration of intervertebral disc of lumbar region with discogenic back pain and lower extremity pain 03/24/2024 9:00 AM ADMITTANCE ATTENDANT Office Visit [facility] Neurosurgery [facility] Medical [facility] Building [address] [place] [address] Radha Nagel NP Intervertebral disc disorder with radiculopathy of lumbar region (Primary Dx); Acute midline low back pain, unspecified whether sciatica present; Degeneration of intervertebral disc of lumbar region with discogenic back pain and lower extremity pain 03/24/2024 8:30 AM ADMITTANCE ATTENDANT - 03/24/2024 11:59 PM ADMITTANCE ATTENDANT Hospital Encounter [facility] [address] [place] [address] [address] [place] [phone] Low back pain, non-specific Discharge Disposition: Discharge to home or self care 03/24/2024 Orders Only [facility] Neurosurgery [address] [place] [address] Office [facility] [address] [place] [phone] Arnulfo Woodard MD 03/21/2024 Orders Only [facility] Neurosurgery [address] [place] [address] Office [facility] [address] [place] [phone] Arnulfo Woodard MD 03/17/2024 Orders Only [facility] Neurosurgery [address] [place] [address] Medical Office [facility] [address] [place] [phone] Arnulfo Woodard MD Low back pain, non-specific (Primary Dx) 03/11/2024 Telephone [facility] Medical Group Diabetes and Endocrinology [address] [place] [phone] Ita Martins MD new referral to endocrinology from Last 3 Months Immunizations Name Administration Dates Next Due COVID-19 MRNA (MODERNA) .5 M L (50 MCG) VACCINE (12 YEARS AND UP) 01/31/2023 COVID-19 mRNA (PFIZER) 0.3 m L (30 mcg) vaccine (12 years and up) 03/07/2024 Influenza Virus Vaccine Trivalent Mdv 01/16/2020 Influenza, Quadrivalent, Hig h Dose, Preservative Free, Intrr 01/26/2023,01/25/2022,02/22/2021 Influenza, Trivalent, High D ose, Split, Preservative Free, Intramuscular 03/07/2024,03/03/2019,02/25/2015 Influenza, Unspecified 03/07/2021,02/22/2021 Moderna Sars-cov-2 Bivalent Vaccine 50 Mcg/0.5 mL (12+ YRS)-Blue/Melraa 03/28/2022 Pneumococcal Conjugate PCV 13 06/07/2019 Pneumococcal Polysaccharide PPV23 06/07/2018 RSV Vaccine, Pref, Recombina nt, Subunit, Adjuvanted, PF, IM (Arexvy) 02/28/2023,02/23/2023 Sars-CoV-2, Unspecified 01/31/2023 ZOSTER Recombinant 11/27/2018,09/25/2018 Surgical History Surgery Date Site/Laterality Comments CHOLECYSTECTOMY 05/14/1984 - 05/13/1985 Cholecystectomy TOTAL ABDOMINAL HYSTERECTOMY W/ BILATERAL SALPINGOOPHORECTOMY 05/14/1994 - 05/13/1995 Hysterectomy, total abdominal, BSO HIP SURGERY JOINT REPLACEMENT BLADDER SURGERY FLUORO GUIDED INJECTION ANKL E LEFT 07/10/2023 Left FL FLUORO GUIDED LUMBAR PUNCTURE 02/20/2024 Right FL FLUORO GUIDED LUMBAR PUNCTURE 04/14/2024 Right Medical History Medical History Date Comments Hx Other Medical 2012 bladder and col on surgery Disorder of thyroid Thyroid dise ase Hypertension Hypertension GERD (gastroesophageal reflux disease) Anemia Anxiety Arthritis Asthma Cataract Chronic bronchitis (HCC) Depression Diverticulitis of colon Gastric reflux Hyperthyroidism Osteoporosis Rheumatoid arthritis (HCC) Family History Medical History Relation Name Comments Cancer Brother Lupus Cousin 2 Systemic lupus erythematosus; Cancer Daughter Heart disease Father Stroke Maternal Grandmother Heart disease Mother Stroke Mother Rheum arthritis Paternal Grandmother Rheu matoid arthritis; Cancer Sister Relation Name Status Comments Brother Cousin 1 Alive Cousin 2 Daughter Alive Father Maternal Grandmother Mother Paternal Grandmother Alive Sister Social History Tobacco Use Types Packs/Day Years Used Date Smoking Tobacco: Never Smokeless Tobacco: Never Tobacco Cessation:Counseling Given: No Alcohol Use Standard Drinks/Week Comments No 0 (1 standard drink = 0.6 oz pur e alcohol) PHQ-2 Answer Date Recorded PHQ-2 Total Score (If total score is 3 or more points, staff should administer the PHQ-9) 1 03/07/2024 Personal Safety Answer Date Recorded Have you ever been in or are you currently in a harmful physical or emotional relationship or is someone making you feel afraid or unsafe? Denies 04/14/2024 Comments No Sex and Gender Information Value Date Recorded Sex Assigned at Not on file Legal Sex Female 2:34 AM ADMITTANCE ATTENDANT Gender Identity Female 06/07/2021 1:02 PM ADMITTANCE ATTENDANT Sexual Orientation Not on file Obstetrics History Last Filed Vital Signs Vital Sign Reading Time Taken Comments Blood Pressure 143/62 04/14/2024 10:50 AM ADMITTANCE ATTENDANT Pulse 83 04/14/2024 10:50 AM ADMITTANCE ATTENDANT Temperature 35.8 ??C (96.4 ??F) 07/31/2022 10:51 AM C DT Respiratory Rate 18 04/14/2024 10:50 AM ADMITTANCE ATTENDANT Oxygen Saturation 99% 04/14/2024 10:50 AM ADMITTANCE ATTENDANT Inhaled Oxygen Concentration - - Weight 50.8 kg (112 lb) 03/24/2024 9:19 AM ADMITTANCE ATTENDANT Height 157.5 cm (5' 2 ) 03/24/2024 9:19 AM ADMITTANCE ATTENDANT Body Mass Index 20.49 03/24/2024 9:19 AM ADMITTANCE ATTENDANT Plan of Treatment Health Maintenance Due Date Last Done Comments DTaP/Tdap/Td Vaccine (1 - Tdap) 1956 Hepatitis B Screening 1963 Albumin Creatinine Ratio, Urine 01/27/2024 , 01/25/2022 Foot Exam 01/27/2024 01/26/2023, 10/19/2021 Dilated Eye Exam 06/19/2024 06/19/2023, 08/2022, 01/25/2022, Additional history exists Hemoglobin A1C 09/05/2024 03/07/2024, 11/12, 04/27/2023, Additional history exists Osteoporosis Screening-Bone Density Scan 01/03/2025 01/03/2023, 05/27/2020, 05/27/2020, Additional history exists Depression Screening 03/07/2025 03/07/2024, 04/27/2023, 01/26/2023, Additional history exists Lipid Panel 03/07/2025 03/07/2024, 01/12, 10/31/2022, Additional history exists Well Visit 65+ 03/07/2025 03/07/2024, 01/12, 01/25/2022 eGFR 03/07/2025 03/07/2024, 11/12, 04/27/2023, Additional history exists Fall Risk Assessment 04/14/2025 04/14/2024, 03/07/2024, 04/27/2023, Additional history exists Zoster Vaccine Completed 11/27/2018, 09/25/2018 Colon Cancer Screening-CT Colonography Discontinued 05/29/2019 Colon Cancer Screening-Colonoscopy Discontinued 05/29/2019 Colon Cancer Screening-DNA Stool Discontinued 05/29/19 Colon Cancer Screening-FIT Discontinued 05/29/2019 Colon Cancer Screening-FOBT Discontinued 05/29/2019 Colon Cancer Screening-Sigmoidoscopy Discontinued 05/29/2019 Colorectal Cancer Screening Discontinued Pneumococcal vaccine 65+ Completed 06/07/2019, 05/15 Breast Cancer Screening-Mammogram Discontinued 11/03/2022, 09/21/2021, 01/12/2020, Additional history exists Hepatitis C Screening Completed 01/26/2023 Covid-19 Vaccine Completed 03/07/2024, , 01/31/2023, Additional history exists Influenza Vaccine Completed 03/07/2024, , 01/25/2022, Additional history exists Medical Devices Implanted Type Area Roll Up Machine Operator Device Identifier Shelf Expiration Date Model / Serial / Lot [employer] [place] 6.5mm 40mm Screw Acetabular Cancellous Bone Sterile - [id number] Implanted:Qty: 1 on 10/23/2017 by Gregory Hammond MD at [facility] Right: Hip [employer] [id number] 03/13/2027 [id number] / / [employer] [place] 54mm 36mm Liner Hip Neutral Acetabular Altrx Sterile - [id number] Implanted:Qty: 1 on 10/23/2017 by Gregory Hammond MD at [facility] Right: Hip [employer] [id number] 07/11/2022 [id number] / / [employer] [place] 54mm Sector Shell Hip Acetabular Gription Sterile Latex - [id number] Implanted:Qty: 1 on 10/23/2017 by Gregory Hammond MD at [facility] [place] Right: Hip [employer] [id number] 05/13/2027 [id number] / / [employer] [place] 6.5mm 20mm Screw Acetabular Cancellous Bone Sterile - [id number] Implanted:Qty: 1 on 10/23/2017 by Gregory Hammond MD at [facility] [place] Right: Hip [employer] [id number] 05/13/2027 1217-20-500 / / [employer] [place] 6.5mm 25mm Screw Acetabular Cancellous Bone Sterile - [id number] Implanted:Qty: 1 on 10/23/2017 by Gregory Hammond MD at [facility] Right: Hip [employer] [id number] 02/10/2027 1217-25-500 / / Stem Femoral Actis 5 High Offset L105 Mm Hip Collar - [id number] Implanted:Qty: 1 on 10/23/2017 by Gregory Hammond MD at [facility] [place] Right: Hip [employer] [id number] 07/12/2027 [id number] / / [id number] [employer] Articul/Danish 36mm Cementless M Specification No Skirt Jamaican Neck - [id number] Implanted:Qty: 1 on 10/23/2017 by Gregory Hammond MD at [facility] [place] Right: Hip [employer] [id number] 05/13/2022 [id number] / / [id number] Procedures Procedure Name Priority Date/Time Associated Diagnosis Comments TRANSFORAMINAL EPIDURAL INJECTION LUMBAR SACRAL 1 LEVEL RIGHT Schedule Routine, Read Routine (OP Routine) 04/14/2024 10:48 AM ADMITTANCE ATTENDANT Lumbar radiculopathy Back pain with right-sided radiculopathy XR SCOLIOSIS 6 OR MORE VIEWS Schedule Routine, Read Routine (OP Routine) 03/24/2024 9:04 AM ADMITTANCE ATTENDANT Low back pain, non-specific EGFR Routine 03/07/2024 1:58 PM CDT Type 2 diabetes mellitus without complication, without long-term current use of insulin (CMS/HCC) (HCC) Encounter for Medicare annual wellness exam HEMOGLOBIN A1C Routine 03/07/2024 1:58 PM CDT Type 2 diabetes mellitus without complication, without long-term current use of insulin (CMS/HCC) (HCC) Encounter for Medicare annual wellness exam LIPID PANEL Routine 03/07/2024 1:58 PM CDT Encounter for Medicare annual wellness exam DIABETIC EYE EXAM Routine 06/19/2023 10:13 AM ADMITTANCE ATTENDANT HEPATITIS C ANTIBODY Routine 01/26/2023 12:20 PM CDT Encounter for Medicare annual wellness exam Need for hepatitis C screening test ALBUMIN CREATININE RATIO, URINE Routine 01/26/2023 12:20 PM CDT Encounter for Medicare annual wellness exam Type 2 diabetes mellitus without complication, without long-term current use of insulin (CMS/[facility]) ([facility]) SCREENING MAMMOGRAM BILATERAL W BAY Schedule Routine, Read Routine (OP Routine) 11/03/2022 10:59 AM CDT Screening mammogram, encounter for COLONOSCOPY Routine 05/29/2019 DEXA AXIAL SKELETON BONE DENSITY 1 OR MORE SITES Routine 01/21/2016 11:31 AM CDT from Last 3 Months or Most Recently Relevant to Health Maintenance Results * IR Transforaminal Epidural Injection Lumbar Sacral 1 Level Right (04/14/2024 10:48 AM ADMITTANCE ATTENDANT) Narrative [facility] - 04/14/2024 10:48 AM ADMITTANCE ATTENDANT The images from this study are not interpreted by Radiology. ??Please refer to the physician's procedure / OR operative note. us Shana RENEE IMNuno IR PROCEDURES Final Result [facility] * XR Scoliosis 6 or More Views (03/24/2024 9:04 AM ADMITTANCE ATTENDANT) Anatomical Region Laterality Modality Spine N/A Computed Radiogr aphy 03/24/2024 10:1 3 AM ADMITTANCE ATTENDANT Impressions 03/24/2024 10:27 AM ADMITTANCE ATTENDANT 1. ??Mild lumbar dextroscoliosis with multilevel degenerative disc disease, moderate at L5-S1. Dictated by: Akshat Guy MD The radiology attending physician has personally reviewed this study, and had reviewed and/or edited this written report and agrees with it. Electronically signed by: Eugene Becerra M.D. Narrative 03/24/2024 10:27 AM ADMITTANCE ATTENDANT EXAMINATION: XR SCOLIOSIS ??6 OR MORE VIEWS HISTORY: ??Low back pain FINDINGS: Standing stitched frontal and lateral views of the entire spine with 4 additional views of the lumbar spine are compared to lumbar spine MRI 02/03/2024. Mild dextrocurvature of the lumbar spine centered at L2. ??Minimal left higher than right pelvic obliquity. ??No truncal imbalance. Vertebral body heights are normal. ??No significant listhesis. Multilevel degenerative disc disease throughout the lumbar spine, most pronounced and moderate at L5-S1. ??Multilevel lumbar facet arthropathy. ??No abnormal motion with bending. ??Total right hip arthroplasty is present. ??Right upper quadrant surgical clips. Procedure Note Eugene Becerra MD - 03/24/2024 EXAMINATION: XR SCOLIOSIS 6 OR MORE VIEWS HISTORY: Low back pain FINDINGS: Standing stitched frontal and lateral views of the entire spine with 4 additional views of the lumbar spine are compared to lumbar spine MRI 02/03/2024. Mild dextrocurvature of the lumbar spine centered at L2. Minimal left higher than right pelvic obliquity. No truncal imbalance. Vertebral body heights are normal. No significant listhesis. Multilevel degenerative disc disease throughout the lumbar spine, most pronounced and moderate at L5-S1. Multilevel lumbar facet arthropathy. No abnormal motion with bending. Total right hip arthroplasty is present. Right upper quadrant surgical clips. IMPRESSION: 1. Mild lumbar dextroscoliosis with multilevel degenerative disc disease, moderate at L5-S1. Dictated by: Akshat Guy MD The radiology attending physician has personally reviewed this study, and had reviewed and/or edited this written report and agrees with it. Electronically signed by: Eugene Becerra M.D. us Arnulfo Woodard MD IMG XR PROCEDURES Final Re sult * eGFR (03/07/2024 1:58 PM CDT) eGFR >90 >=60 mL/min/1. 73 m2 Comment: Interpretive Data Reference Interval Normal ?>/= 90 mL/min/1.73m2 Mildly decreased* ? 60 - 89 mL/min/1.73m2 Mildly to moderately decreased ?45 - 59 mL/min/1.73m2 Moderately to severely decreased ??30 - 44 mL/min/1.73m2 Severely decreased ?15 - 29 mL/min/1.73m2 Kidney Failure ?< 15 ??mL/min/1.73m2 *Relative to young adult level Estimated glomerular filtration rate is determined by the 2020 CKD-EPI equation recommended by the National Kidney Foundation (A Unifying Approach to GFR Estimation: Recommendations of the NKF-ASK Task Force on Reassessing the Inclusion of Race in Diagnosing Kidney Disease, JASN 202). The CKD-EPI equation should not be used for patients with unstable renal function and has not been validated in children and those over 70. Current interpretive data was last reviewed 2021. Blood 03/07/2024 1:58 PM CDT 03/07/2024 3:13 PM CDT us Gavin Yan MD LAB BLOOD ORDERABLES Final Result [facility] [id number] [facility]. Department [place] [address] * (ABNORMAL) Hemoglobin A1c (03/07/2024 1:58 PM CDT) Hgb A1C 14.8(H) 4.0 - 5.6 % Estimated Average Glucose 378 mg/dL [facility] Comment: The ADA recommends reporting an estimated Average Glucose (eAG) with all Hemoglobin A1c results using the equation derived from a study of 507 normal and diabetic adults. ??Minority populations were underrepresented and children were not included. ?? (Diabetes Care 31:5217-6794, 2008). ??The eAG is not equivalent to a fasting glucose. Blood 03/07/2024 1:58 PM CDT 03/07/2024 3:11 PM CDT us Gavin Yan MD LAB BLOOD ORDERABLES Final Result Performing Organization Address City/State/[facility] Co de Phone Number [facility] [id number] [facility]. [place] [address] * Lipid panel (03/07/2024 1:58 PM CDT) Pathologist [facility] [place] Cholesterol 160 30 - 199 mg/dL Comment: Interpretive Data Ages < or = 19 years ??Acceptable: ? <170 mg/dL ??Borderline high: ??170-199 mg/dL ??High: ? >or= 200 mg/dL Ages > or = 20 years ??Desirable: ?<200 mg/dL ??Borderline high: ??200-239 mg/dL ??High: ? >or= 240 mg/dL Literature References: 1. Expert Panel on Integrated Guidelines for Cardiovascular Health and Risk Reduction in Children and Adolescents. Pediatrics 2011;128:S213 2. NCEP Expert Panel. Circulation 2004;110:227 Current Interpretive Data was last revised on 2018. Triglycerides 97 <=149 mg/dL [facility] Comment: Interpretive Data Ages < or = 9 years ??Acceptable: ? <75 mg/dL ??Borderline high: ??75-99 mg/dL ??High: ? >or= 100 mg/dL Ages 10 to 20 years ??Acceptable: ? <90 mg/dL ??Borderline high: ??90-129 mg/dL ??High: ? >or= 130 mg/dL Ages > or = 20 years ??Desirable: ?<150 mg/dL ??Borderline high: ??150-199 mg/dL ??High: ? 200-499 mg/dL ?Very high: ?? >or= 499 mg/dL Literature References: 1. Expert Panel on Integrated Guidelines for Cardiovascular Health and Risk Reduction in Children and Adolescents. Pediatrics 2011;128:S213 2. NCEP Expert Panel. Circulation 2004;110:227 Current Interpretive Data was last revised on 2018. HDL 74 >=40 mg/dL [facility] Comment: Interpretive Data Ages < or = 19 years ??Acceptable: ? >45 mg/dL ??Borderline low: ?? 40-45 mg/dL ??Low: ? <40 mg/dL Ages > or = 20 years ??Desirable: ?>or= 60 mg/dL ??Low: ? <40 mg/dL Literature References: 1. Expert Panel on Integrated Guidelines for Cardiovascular Health and Risk Reduction in Children and Adolescents. Pediatrics 2011;128:S213 2. NCEP Expert Panel. Circulation 2004;110:227 Current Interpretive Data was last revised on 2018. LDL, calculated 68 <=129 mg/dL [facility] Comment: Interpretive Data Ages < or = 19 years ??Acceptable: ? <110 mg/dL ??Borderline high: ??110-129 mg/dL ??High: ?>or= 130 mg/dL Ages > or = 20 years ??Optimal: ? <100 mg/dL ??Near optimal: ?100-129 mg/dL ??Borderline high: ?? 130-159 mg/dL ??High: ?>160 mg/dL Calculated using the Manuel LDL-C estimating equation. This equation was implemented on 2024. Prior to this date LDL-C was estimated using the Friedewald equation. Literature References: 1. Expert Panel on Integrated Guidelines for Cardiovascular Health and Risk Reduction in Children and Adolescents. Pediatrics 2011;128:S213 2. NCEP Expert Panel. Circulation 2004;110:227 3. Manuel Jackson et al. JULY Cardiol. 2020 September 11;5(5):540-548. doi: 10.1001/jamacardio.2020.0013 Current Interpretive Data was last revised on 2024. Non-HDL Cholesterol 86 mg/dL [facility] Comment: Interpretive Data Ages < or = 19 years ??Acceptable: ?<120 mg/dL ??Borderline high: ??120-144 mg/dL ??High: ?>145 mg/dL Ages > or = 20 years ??When triglycerides are >200 mg/dL, Non-HDL cholesterol is a secondary target of ? therapy with treatment goals that are 30 mg/dL greater than the LDL cholesterol target. ? Literature References: 1. Expert Panel on Integrated Guidelines for Cardiovascular Health and Risk Reduction in Children and Adolescents. Pediatrics 2011;128:S213 2. NCEP Expert Panel. Circulation 2004;110:227 Current Interpretive Data was last revised on 2018. Chol/HDL ratio 2 [facility] Blood 03/07/2024 1:58 PM CDT 03/07/2024 3:13 PM CDT us Gavin Yan MD LAB BLOOD ORDERABLES Final Result [facility] [id number] [facility]. [place] [address] * Diabetic Eye Exam (06/19/2023 10:13 AM ADMITTANCE ATTENDANT) Historical Provider HEALTH MAINTENANCE Final Result * Hepatitis C antibody Blood (01/26/2023 12:20 PM CDT) [facility] Hep C Ab Nonreactive Nonreactive Comment: Interpretive Data Nonreactive: Antibodies to HCV not detected. Does NOT exclude the possibility of recent exposure to HCV. Equivocal: Equivocal for HCV antibodies. Supplemental molecular testing will be automatically performed to determine infection status in accordance with current CDC screening recommendations. ?? Reactive: Positive for HCV antibodies. ??This may represent current or past HCV infection. Supplemental molecular testing will be automatically performed to determine ??current infection status in accordance with current CDC screening recommendations. Interpretive data was last revised on 2019. Testing performed by: [facility], [address] [place] [address]., [id number] Blood 01/26/2023 12:2 0 PM CDT 01/26/2023 2:30 PM CDT us Gavin Yan MD LAB MICROBIOLOGY - GENERAL ORDERABLES Edited Result - Final [facility] [id number] [facility] Department [place] [address] * Albumin Creatinine Ratio, Urine (01/26/2023 12:20 PM CDT) Pathologist [facility] [place] Albumin Ur <12.0 mg/L [facility] Comment: Interpretive Data No reference range established. Current interpretive data was last revised 2018. Testing performed by: [facility], [address] [place] [address]., [id number] Creatinine Ur 16.6 mg/dL [facility] Comment: Interpretive Data No reference range established. Current interpretive data was last revised 2018. Testing performed by: [facility], [address] [place] [address]., [id number] Albumin Creatinine Ratio, Ur See Comment 1 - 29 [facility] Comment: Unable to calculate Testing performed by: [facility], [address] [place] [address]., [id number] Urine 01/26/2023 12:2 0 PM CDT 01/26/2023 2:31 PM CDT Gavin Yan MD LAB URINE ORDERABLES Final Result [facility] [id number] [address] [facility]. [place] [address] * Screening Mammogram Bilateral [place] (11/03/2022 10:59 AM CDT) Anatomical Region Laterality Modality Breast Bilateral Mammography Narrative 11/03/2022 3:26 PM CDT Mammogram Technique: Bilateral Digital Breast Tomosynthesis, Bilateral C-view 2D Screening mammogram. ??Views obtained: ??bilateral craniocaudal and bilateral mediolateral oblique. ??Computer Aided Detection was performed. Mammogram Findings: The present examination has been compared to prior imaging studies performed at [facility] on 01/21/2016, 01/12/2020 and 09/21/2021. There are scattered areas of fibroglandular density. There is no suspicious abnormality in either breast. Impression: There is no mammographic evidence of malignancy. Annual screening mammography is recommended. OVERALL FINAL ASSESSMENT: BI-RADS CATEGORY 1: ??Negative. Procedure Note Anali Weber MD - 11/03/2022 Mammogram Technique: Bilateral Digital Breast Tomosynthesis, Bilateral C-view 2D Screening mammogram. Views obtained: bilateral craniocaudal and bilateral mediolateral oblique. Computer Aided Detection was performed. Mammogram Findings: The present examination has been compared to prior imaging studies performed at [facility] on 01/21/2016, 01/12/2020 and 09/21/2021. There are scattered areas of fibroglandular density. There is no suspicious abnormality in either breast. Impression: There is no mammographic evidence of malignancy. Annual screening mammography is recommended. OVERALL FINAL ASSESSMENT: BI-RADS CATEGORY 1: Negative. Self Screening Mammogram IMG MAMMO PROCEDURES Fi nal Result * Colonoscopy (05/29/2019) Anatomical Region Laterality Modality Other Historical Provider ENDOSCOPY PROCEDURES Margaret l Result * DEXA Axial Skeleton Bone Density Multi Site (01/21/2016 11:31 AM CDT) Anatomical Region Laterality Modality Body N/A Radiographic Tiffani ging 01/21/2016 11:3 1 AM CDT Narrative 01/21/2016 3:42 PM CDT ALIN ANDRE M.D. FINAL REPORT ACC# ??Date Time ??Exam [id number] Jan 21, 2016 11:31:00 [id number] DEXA Axial 1 or 2 Sites EXAMINATION: ??BONE DENSITOMETRY OF THE SPINE AND HIP DATE OF STUDY: ??01/21/2016 HISTORY: ??70-year-old postmenopausal woman with prior hysterectomy and removal of ovaries at age 54. ??She is being treated with no bone medications. By patient report, she has rheumatoid arthritis.. ??Evaluate bone mineral density. FINDINGS (SPINE): The bone mineral density of L1-L4 was assessed by dual-energy x-ray absorptiometry. The average bone mineral density within this region is 0.843 gm/sq-cm. This is 0.2 standard deviations above the mean of the average bone mineral density for age- and gender-matched subjects (the Z-score). It is 1.9 standard deviations below the mean peak bone mineral density in young adults (the T-score). FINDINGS (FEMORAL NECK): The bone mineral density of the left femoral neck was assessed by dual-energy x-ray absorptiometry. The average bone mineral density within the femoral neck region is 0.568 gm/sq-cm. This is 0.8 standard deviations below the mean of the average bone mineral density for age- and gender-matched subjects (the Z-score). It is 2.5 standard deviations below the mean peak bone mineral density in young adults (the T-score). FINDINGS (TOTAL HIP): The bone mineral density of the left hip was assessed by dual-energy x-ray absorptiometry. The average bone mineral density within the total hip region is 0.677 gm/sq-cm. This is 0.7 standard deviations below the mean of the average bone mineral density for age- and gender-matched subjects (the Z-score). It is 2.2 standard deviations below the mean peak bone mineral density in young adults (the T-score). SUMMARY OF CURRENT RESULTS: Region ? Exam Date ?BMD ?T-Score ??Z-Score AP Spine (L1-L4) ? 01/21/2016 ?? 0.843 ?? -1.9 ?0.2 Femoral Neck (Left) ?01/21/2016 ?? 0.568 ?? -2.5 ? -0.8 Total Hip (Left) ? 01/21/2016 ?? 0.677 ?? -2.2 ? -0.7 COMPARISON WITH PREVIOUS RESULTS Region ? Age ?BMD ?? T-Score ?? BMD Change ? BMD Change Exam Date ?g/cm2 ?vs Baseline ?vs Previous AP Spine(L1-L4) 01/21/2016 ??70 ?0.843 ?-1.9 ?-5.5%# ?-1.5% 04/05/2005 ??59 ?0.855 ?-1.7 ?-4.1%# ?-0.8%# 04/29/2003 ??57 ?0.863 ?-1.7 ?-3.3%* ?-3.3%* 12/05/2000 ??54 ?0.892 ?-1.4 Total Hip(Left) 01/21/2016 ??70 ?0.677 ?-2.2 ?-9.2%# ? -13.0%* 04/05/2005 ??59 ?0.779 ?-1.3 ? 4.4%# ? 6.4%# 04/29/2003 ??57 ?0.732 ?-1.7 ?-1.9% ? -1.9% 12/05/2000 ??54 ?0.746 ?-1.6 * Indicates significant change # Denotes dissimilar scan types or analysis methods ?? IMPRESSION: ??- 1. The bone mineral density of the lumbar spine is mildly decreased. There has been a statistically significant decrease in bone mineral density since the baseline examination of 12/05/2000. 2. The bone mineral density of the left femoral neck is moderately decreased. 3. The bone mineral density of the left total hip is mildly decreased. There has been a statistically significant decrease in bone mineral density since the baseline examination of 12/05/2000. 4. Overall, the above findings are diagnostic of osteoporosis by WHO criteria. 5. Based on the FRAX fracture risk model, the 10-year probability for major osteoporotic fracture is 18% and that for hip fracture is 4.6%, assuming the patient does indeed have rheumatoid arthritis. Per a clinic note from 2012, the patient was reported to instead have osteoarthritis. ??Presuming the patient does not have rheumatoid arthritis, these values would be 14% and 3.2% respectively. This 10-year fracture risk estimate was calculated using the risk factors noted in the history above, along with the femoral neck bone density. ?? FRAX is intended to help guide treatment decisions in men over age 50 and postmenopausal women with low bone mass (osteopenia). The National Osteoporosis Foundation (NOF) recommends that FDA-approved medical therapies be considered in postmenopausal women and men age 50 years and older with low bone mass whose 10-year fracture probability by FRAX is >= 20% for major osteoporotic fracture or >= 3% for hip fracture. However, all treatment decisions require clinical judgment and consideration of individual patient factors, including patient preferences, comorbidities, previous drug use, risk factors not captured in the FRAX model (e.g., frailty, falls, vitamin D deficiency, increased bone turnover, interval significant decline in bone density) and possible under- or overestimation of fracture risk by FRAX. General comments regarding interpretation of bone mineral density measurements: a) ??In children, premenopausal woman and males under age 50 not at increased risk for fractures only Z-scores, not T-scores are used to indicate risk. ??A Z-score above -2.0 is defined as within the expected range for age and Z-score at or less than -2.0 is below the expected range for age . ??A Z-score below the expected range for age in a patient with recent fractures and/or chronic corticosteroid treatment is consistent with a diagnosis of osteoporosis. b) ??In post menopausal women and males over 50, comparison of the measured bone mineral density with the average value in young normal subjects (the T-score ) has been found to be useful in assessing fracture risk. ??Fracture risk approximately doubles for each 1.0 standard deviation (SD) in individual's hip or spine bone mineral density is below the average value of young normal subjects. ??The World Health Organization (WHO) has defined T-scores of -1.0 to -2.5 as diagnostic of low bone mass (OSTEOPENIA), and T-scores of -2.5 or lower to be diagnostic of OSTEOPOROSIS, based on the site of lowest bone density. Note that there will be a change in reporting format and reference databases as patients move from the younger population (group a) to the older population (group b) The National Osteoporosis Foundation (www.nof.org) recommends adequate intake of calcium and vitamin D and regular weight-bearing exercise in all patients. ??They recommend pharmacologic treatment in postmenopausal women and men age 50 and older presenting with any of the followin) ? Osteoporosis, after appropriate evaluation to exclude secondary causes. 2) ? A hip or vertebral (clinical or radiographic) fracture, regardless of the bone density. 3) ? Low bone mass (Osteopenia) and one or more of: other prior fractures, secondary causes associated with high risk of fracture (such as glucocorticoid use or total immobilization), or computed high risk of fracture (10-yr probability of hip fracture >= 3% or a 10-yr probability of any major osteoporosis-related fracture >= 20% based on the [place].-adapted WHO algorithm), available at http://www.shef.ac.uk/FRAX). ?? Requested By: Dictated By: ?? ALIN ANDRE M.D. ??on Jan 11:34A This document has been electronically signed by: ALIN ANDRE M.D. on Jan ??3:42P Procedure Note Provider, MD Edgardo - 08/30/2016 ALIN ANDRE M.D. FINAL REPORT ACC# Date Time Exam [id number] Jan 21, 2016 11:31:00 [id number] DEXA Axial 1 or 2 Sites EXAMINATION: BONE DENSITOMETRY OF THE SPINE AND HIP DATE OF STUDY: 01/21/2016 HISTORY: 70-year-old postmenopausal woman with prior hysterectomy and removal of ovaries at age 54. She is being treated with no bone medications. By patient report, she has rheumatoid arthritis.. Evaluate bone mineral density. FINDINGS (SPINE): The bone mineral density of L1-L4 was assessed by dual-energy x-ray absorptiometry. The average bone mineral density within this region is 0.843 gm/sq-cm. This is 0.2 standard deviations above the mean of the average bone mineral density for age- and gender-matched subjects (the Z-score). It is 1.9 standard deviations below the mean peak bone mineral density in young adults (the T-score). FINDINGS (FEMORAL NECK): The bone mineral density of the left femoral neck was assessed by dual-energy x-ray absorptiometry. The average bone mineral density within the femoral neck region is 0.568 gm/sq-cm. This is 0.8 standard deviations below the mean of the average bone mineral density for age- and gender-matched subjects (the Z-score). It is 2.5 standard deviations below the mean peak bone mineral density in young adults (the T-score). FINDINGS (TOTAL HIP): The bone mineral density of the left hip was assessed by dual-energy x-ray absorptiometry. The average bone mineral density within the total hip region is 0.677 gm/sq-cm. This is 0.7 standard deviations below the mean of the average bone mineral density for age- and gender-matched subjects (the Z-score). It is 2.2 standard deviations below the mean peak bone mineral density in young adults (the T-score). SUMMARY OF CURRENT RESULTS: Region Exam Date BMD T-Score Z-Score AP Spine (L1-L4) 01/21/2016 0.843 -1.9 0.2 Femoral Neck (Left) 01/21/2016 0.568 -2.5 -0.8 Total Hip (Left) 01/21/2016 0.677 -2.2 -0.7 COMPARISON WITH PREVIOUS RESULTS Region Age BMD T-Score BMD Change BMD Change Exam Date g/cm2 vs Baseline vs Previous AP Spine(L1-L4) 01/21/2016 70 0.843 -1.9 -5.5%# -1.5% 04/05/2005 59 0.855 -1.7 -4.1%# -0.8%# 04/29/2003 57 0.863 -1.7 -3.3%* -3.3%* 12/05/2000 54 0.892 -1.4 Total Hip(Left) 01/21/2016 70 0.677 -2.2 -9.2%# -13.0%* 04/05/2005 59 0.779 -1.3 4.4%# 6.4%# 04/29/2003 57 0.732 -1.7 -1.9% -1.9% 12/05/2000 54 0.746 -1.6 * Indicates significant change # Denotes dissimilar scan types or analysis methods IMPRESSION: - 1. The bone mineral density of the lumbar spine is mildly decreased. There has been a statistically significant decrease in bone mineral density since the baseline examination of 12/05/2000. 2. The bone mineral density of the left femoral neck is moderately decreased. 3. The bone mineral density of the left total hip is mildly decreased. There has been a statistically significant decrease in bone mineral density since the baseline examination of 12/05/2000. 4. Overall, the above findings are diagnostic of osteoporosis by WHO criteria. 5. Based on the FRAX fracture risk model, the 10-year probability for major osteoporotic fracture is 18% and that for hip fracture is 4.6%, assuming the patient does indeed have rheumatoid arthritis. Per a clinic note from 2012, the patient was reported to instead have osteoarthritis. Presuming the patient does not have rheumatoid arthritis, these values would be 14% and 3.2% respectively. This 10-year fracture risk estimate was calculated using the risk factors noted in the history above, along with the femoral neck bone density. FRAX is intended to help guide treatment decisions in men over age 50 and postmenopausal women with low bone mass (osteopenia). The National Osteoporosis Foundation (NOF) recommends that FDA-approved medical therapies be considered in postmenopausal women and men age 50 years and older with low bone mass whose 10-year fracture probability by FRAX is >= 20% for major osteoporotic fracture or >= 3% for hipfracture. However, all treatment decisions require clinical judgment and consideration of individual patient factors, including patient preferences, comorbidities, previous drug use, risk factors not captured in the FRAX model (e.g., frailty, falls, vitamin D deficiency, increased bone turnover, interval significant decline in bone density) and possible under- or overestimation of fracture risk by FRAX. General comments regarding interpretation of bone mineral density measurements: a) In children, premenopausal woman and males under age 50 not at increased risk for fractures only Z-scores, not T-scores are used to indicate risk. A Z-score above -2.0 is defined as within the expected range for age and Z-score at or less than -2.0 is below the expected range for age . A Z-score below the expected range for age in a patient with recent fractures and/or chronic corticosteroid treatment is consistent with a diagnosis of osteoporosis. b) In post menopausal women and males over 50, comparison of the measured bone mineral density with the average value in young normal subjects (the T-score ) has been found to be useful in assessing fracture risk. Fracture risk approximately doubles for each 1.0 standard deviation (SD) in individual's hip or spine bone mineral density is below the average value of young normal subjects. The World Health Organization (WHO) has defined T-scores of -1.0 to -2.5 as diagnostic of low bone mass (OSTEOPENIA), and T-scores of -2.5 or lower to be diagnostic of OSTEOPOROSIS, based on the site of lowest bone density. Note that there will be a change in reporting format and reference databases as patients move from the younger population (group a) to the older population (group b) The National Osteoporosis Foundation (www.nof.org) recommends adequate intake of calcium and vitamin D and regular weight-bearing exercise in all patients. They recommend pharmacologic treatment in postmenopausal women and men age 50 and older presenting with any of the followin) Osteoporosis, after appropriate evaluation to exclude secondary causes. 2) A hip or vertebral (clinical or radiographic) fracture,regardless of the bone density. 3) Low bone mass (Osteopenia) and one or more of: other prior fractures, secondary causes associated with high risk of fracture (such as glucocorticoid use or total immobilization), or computed high risk of fracture (10-yr probability of hip fracture >= 3% or a 10-yr probability of any major osteoporosis-related fracture >= 20% based on the [place]adapted WHO algorithm), available at http://www.shef.ac.uk/FRAX). Requested By: Dictated By: ALIN ANDER M.D. on Jan 21 2016 11:34A This document has been electronically signed by: ALIN ANDRE M.D. on Jan 21 2016 3:42P Historical Provider MD [facility] DXA PROCEDURES Final Result from Last 3 Months or Most Recently Relevant to Health Maintenance Insurance MEDICARE [facility] MEDICARE SUPPLEMENT MEDICARE [facility] MEDICARE * Guarantor: Mihaela Huang Account Type Relation to Patient Date of Phone Billing Address Director Of Sales Support Self 1945 [address] [place] [address] Advance Directives For more information, please contact: [phone] * Full Code (Latest Code Status on File) Date Activated Date Inactivated Comments 10/25/2017 2:21 PM * Full Code Date Activated Date Inactivated Comments 10/23/2017 4:32 PM 10/24/2017 6:11 PM Care Teams Principal Cyber Engineer Relationship Specialty Start Date End Date Gavin Yan MD [address] [place] [address] [place] [id number] PCP - General Internal Medicine 05/05/21
--- OUTSIDE RECORDS SUMMARY | 2024-06-11 12:14 | XMS_ITS | Referral Summary ---
Author Organization [facility] [address] Address [address] [place] [address] Care Team Providers Care Presentation Designer Name Role Phone Gavin Yan MD Primary Care Provider [phone] Encounters Date Type Department Care Team Description 06/03/2024 Orders Only [facility] [address] [place] [phone] Gavin Yan MD 05/10/2024 Orders Only [facility] [address] [place] [phone] Gavin Yan MD 04/14/2024 9:24 AM RADIO JOURNALIST - 04/14/2024 11:59 PM RADIO JOURNALIST Hospital Encounter [facility] [address] [place] [address] Durga Vasquez MD Lumbar radiculopathy (Primary Dx); Back pain with right-sided radiculopathy Discharge Disposition: Discharge to home or self care 03/31/2024 Orders Only [facility] Orthopaedic Surgery [address] [place] [address] [address] [place] [phone] Shana Galarza PA Lumbar radiculopathy (Primary Dx); Back pain with right-sided radiculopathy 03/31/2024 Telephone [facility] Orthopaedic Surgery [address] [place] [address] Medical Office Building [address] [place] [address] Shana Galarza PA 03/28/2024 Telephone [facility] Orthopaedic Surgery [address] [place] [address] Office [address] [place] [address] Nikita Blackman CMA 03/25/2024 Orders Only [facility] Neurosurgery [address] [place] [address] Office [facility] [address] [place] [address] Arnulfo Woodard MD Intervertebral disc disorder with radiculopathy of lumbar region (Primary Dx); Acute midline low back pain, unspecified whether sciatica present; Degeneration of intervertebral disc of lumbar region with discogenic back pain and lower extremity pain 03/24/2024 Orders Only [facility] Neurosurgery [address] [place] [address] Office [facility] [address] [place] [address] Arnulfo Woodard MD 03/24/2024 8:30 AM RADIO JOURNALIST - 03/24/2024 11:59 PM RADIO JOURNALIST Hospital Encounter [facility] [address] [place] [address] [address] [place] [address] Low back pain, non-specific Discharge Disposition: Discharge to home or self care 03/24/2024 9:00 AM RADIO JOURNALIST Office Visit [facility] Neurosurgery [address] [place] [address] [address] [place] [address] Radha Nagel NP Intervertebral disc disorder with radiculopathy of lumbar region (Primary Dx); Acute midline low back pain, unspecified whether sciatica present; Degeneration of intervertebral disc of lumbar region with discogenic back pain and lower extremity pain 03/21/2024 Orders Only [facility] Neurosurgery [address] [place] [address] Office [facility] [address] [place] [address] Arnulfo Woodard MD 03/17/2024 Orders Only [facility] Neurosurgery [address] [place] [address] Medical Office Building [address] [place] [address] Arnulfo Woodard MD Low back pain, non-specific (Primary Dx) 03/11/2024 Telephone [facility] Medical [facility] Diabetes and Endocrinology [address] [place] [phone] Dedrick Tse, Ita Tse MD new referral to endocrinology from Last 3 Months Allergies Active Allergy Reactions Criticality Noted Date [...] each nostril as directed 30 mL 08/01/19 23 Active albuterol HFA (ProAir HFA) 90 mcg/actuation inhaler Inhale 2 puffs 4 (four) times a day 3 each 04/09/20 23 Active aMILoride-hydr oCHLOROthiazid e (MODURETIC) 5-50 mg [...] 1 tablet (75 mcg total) by mouth bakery chef before breakfast 90 tablet 3 01/29/20 24 Active blood glucose diagnostic (glucose blood) strip Test once daily Dx code E11.9 100 each 11 01/31/20 24 025 Active gabapentin (NEURONTIN) 300 mg capsule Take 1 capsule (300 mg total) by mouth 3 (three) times a day 90 capsule 1 02/29/20 24 Active insulin glargine 100 unit/mL (3 mL) pen for injection Inject 12 Units under the skin nightly 3 mL 11 03/10/20 Active montelukast (SINGULAIR) 10 mg tablet Take 1 tablet by mouth nightly 90 tablet 03/24/20 Active celecoxib (CeleBREX) 200 mg capsuleIndicat ions:Pain [...] she fell yesterday, 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 Some bruising. Some headache Elevated serum creatinine 12/18/2022 Assessment & Plan (12/18/2022 1:47 PM CDT): Reviewed her lab work. Will repeat a creatinine I believe this is a lab error when looking at her old numbers BMI 26.0-26.9,adult 07/31/2022 Assessment & Plan (04/27/2023 10:55 AM RADIO JOURNALIST): BMI Follow-up includes: nutrition counseling, exercise counseling, [...] follow-up Assessment & Plan (05/03/2022 7:54 AM RADIO JOURNALIST): Currently under the treatment of Rheumatology for inflammatory arthritis continues on leflunomide. They are trying to increase the dose we discussed possibly going to [facility] pharmacy as the cost is becoming prohibitive [...] next steps OPERATIVE REPORT ?? FACILITY ID: [facility] ?? SURGEON Edilson Kwon MD ?? PREOPERATIVE DIAGNOSIS Soft tissue mass, right calf. ?? POSTOPERATIVE DIAGNOSIS Soft tissue mass, right calf. ?? PROCEDURE Wide excision mass right calf. ?? ROCKET SCIENTIST Augustus Leach MD ?? ANESTHESIA General. ?? [...] FINAL Patient Name: MIHAELA HUANG ? Address: [address] [place] [address] ??Service: ??Orthopedic Surgery ??[place], [place] ??[address] ??Location: ??[facility] Taken: 07/17/2017 Gender: F ?? Received: 07/17/2017 : 1945 (Age: 71) ??Hospital #: ??[id number] Accessioned: 07/17/2017 ?Patient Type: ??[facility] SDS Reported: 07/24/2017 ? Physician(s): Edilson Kwon M.D. ? Diagnosis: Soft tissue, right [...] time Assessment & Plan (04/30/2023 9:53 AM RADIO JOURNALIST): Reports no significant heartburn at this time Assessment & Plan (01/25/2022 1:46 PM CDT): Reports no significant heartburn at this time Assessment & Plan (08/16/2021 2:24 PM CDT): Reporting no current significant symptoms we discussed continuing Prevacid/PPI Assessment & Plan (06/08/2021 9:55 AM RADIO JOURNALIST): Reports no significant heartburn at this time will follow her Allergic rhinitis 12/06/2020 Mixed hyperlipidemia 12/06/2020 Assessment & Plan (08/13/2023 8:44 AM CDT): She is due for redraw fasting lipid profile today Assessment & Plan (01/25/2022 1:46 PM CDT): She is due for redraw fasting lipid profile today Depressive disorder 10/25/2019 Assessment & Plan (04/30/2023 9:53 AM RADIO JOURNALIST): Patient continues to relate quite a bit [...] things Assessment & Plan (05/03/2022 7:53 AM RADIO JOURNALIST): She is having quite a bit of [...] today Assessment & Plan (05/03/2022 7:54 AM RADIO JOURNALIST): We reviewed her last A1c which was [...] needed Assessment & Plan (04/30/2023 9:52 AM RADIO JOURNALIST): We will redraw thyroid functions with next [...] replacement Assessment & Plan (06/08/2021 9:55 AM RADIO JOURNALIST): Recheck thyroid functions today Benign essential hypertension 10/22/2018 Assessment & Plan (04/30/2023 9:53 AM RADIO JOURNALIST): Blood pressure is under excellent control on [...] medication Assessment & Plan (06/08/2021 9:55 AM RADIO JOURNALIST): Blood pressure is fairly well controlled on current regimen Hives 10/22/2018 Osteoporosis 04/23/2018 Assessment & Plan (08/13/2023 8:43 AM CDT): Continues on Prolia therapy. She is not due for a bone density scan for another year Assessment & Plan (05/03/2022 7:53 AM RADIO JOURNALIST): Continues on Prolia therapy. She is not due for a bone density scan for another year Assessment & Plan (06/08/2021 9:55 AM RADIO JOURNALIST): Continues on Prolia therapy near her home in [facility] Arthralgia of hip 07/04/2017 Rectal bleeding 01/27/2017 [...] Arthritis 01/02/2012 01/25/2022 Overview (10/22/2018): RHEUMATOID ARTHRITIS Immunizations Name Administration Dates Next Due COVID-19 [...] Sars-cov-2 Bivalent Vaccine 50 Mcg/0.5 mL (12+ YRS)-Blue/Melara 03/28/2022 Pneumococcal Conjugate PCV 13 06/07/2019 Pneumococcal Polysaccharide PPV23 06/07/2018 RSV Vaccine, Pref, Recombina nt, Subunit, Adjuvanted, PF, IM (Arexvy) 02/28/2023,02/23/2023 Sars-CoV-2, Unspecified 01/31/2023 ZOSTER Recombinant 11/27/2018,09/25/2018 Social History Tobacco Use Types Packs/Day Years [...] on file Legal Sex Female 2:34 AM RADIO JOURNALIST Gender Identity Female 06/07/2021 1:02 PM RADIO JOURNALIST Sexual Orientation Not on file Last Filed Vital Signs Vital Sign Reading Time Taken Comments Blood Pressure 143/62 04/14/2024 10:50 AM RADIO JOURNALIST Pulse 83 04/14/2024 10:50 AM RADIO JOURNALIST Temperature 35.8 ??C (96.4 ??F) 07/31/2022 10:51 AM C DT Respiratory Rate 18 04/14/2024 10:50 AM RADIO JOURNALIST Oxygen Saturation 99% 04/14/2024 10:50 AM RADIO JOURNALIST Inhaled Oxygen Concentration - - Weight 50.8 kg (112 lb) 03/24/2024 9:19 AM RADIO JOURNALIST Height 157.5 cm (5' 2 ) 03/24/2024 9:19 AM RADIO JOURNALIST Body Mass Index 20.49 03/24/2024 9:19 AM RADIO JOURNALIST Plan of Treatment Not on file Medical Devices Implanted Type Area Plant Facilities Technician Device Identifier Shelf Expiration Date Model / Serial / Lot [employer] [place] 6.5mm 40mm Screw Acetabular Cancellous Bone Sterile - [id number] Implanted:Qty: 1 on 10/23/2017 by Gregory Hammond MD at [facility] Right: Hip [employer] [id number] 03/13/2027 [id number] / / [employer] [place] 54mm 36mm Liner Hip Neutral Acetabular Altrx Sterile - [id number] Implanted:Qty: 1 on 10/23/2017 by Gregory Hammond MD at [facility] Right: Hip [employer] [id number] 07/11/2022 [id number] / / [employer] [place] 54mm Sector Shell Hip Acetabular Gription Sterile Latex - [id number] Implanted:Qty: 1 on 10/23/2017 by Gregory Hammond MD at [facility] Right: Hip [employer] [id number] 05/13/2027 [id number] / / [employer] [place] 6.5mm 20mm Screw Acetabular Cancellous Bone Sterile - [id number] Implanted:Qty: 1 on 10/23/2017 by Gregory Hammond MD at [facility] Right: Hip [employer] [id number] 05/13/2027 1217--500 / / [employer] [place] 6.5mm 25mm Screw Acetabular Cancellous Bone Sterile - [id number] Implanted:Qty: 1 on 10/23/2017 by Gregory Hammond MD at [facility] Right: Hip [employer] [id number] 02/10/2027 1217--500 / / Stem Femoral Actis 5 High Offset L105 Mm Hip Collar - [id number] Implanted:Qty: 1 on 10/23/2017 by Gregory Hammond MD at [facility] Right: Hip [employer] [id number] 07/12/2027 [id number] / / [id number] [employer] Articul/Danish 36mm Cementless M Specification No Skirt [place] Neck - [id number] Implanted:Qty: 1 on 10/23/2017 by Gregory Hammond MD at [facility] Right: Hip [employer] [id number] 05/13/2022 [id number] / / [id number] Procedures Procedure Name Priority Date/Time Associated Diagnosis Comments TRANSFORAMINAL EPIDURAL INJECTION LUMBAR SACRAL 1 LEVEL RIGHT Schedule Routine, Read Routine (OP Routine) 04/14/2024 10:48 AM RADIO JOURNALIST Lumbar radiculopathy Back pain with right-sided radiculopathy XR SCOLIOSIS 6 OR MORE VIEWS Schedule Routine, Read Routine (OP Routine) 03/24/2024 9:04 AM RADIO JOURNALIST Low back pain, non-specific EGFR Routine 03/07/2024 1:58 PM CDT Type 2 diabetes mellitus without complication, without long-term current use of insulin (CMS/HCC) ([facility]) Encounter for Medicare annual wellness exam HEMOGLOBIN A1C Routine 03/07/2024 1:58 PM CDT Type 2 diabetes mellitus without complication, without long-term current use of insulin (CMS/HCC) ([facility]) Encounter for Medicare annual wellness exam LIPID PANEL Routine 03/07/2024 1:58 PM CDT Encounter for Medicare annual wellness exam DIABETIC EYE EXAM Routine 06/19/2023 10:13 AM RADIO JOURNALIST HEPATITIS C ANTIBODY Routine 01/26/2023 12:20 PM CDT Encounter for Medicare annual wellness exam Need for hepatitis C screening test ALBUMIN CREATININE RATIO, URINE Routine 01/26/2023 12:20 PM CDT Encounter for Medicare annual wellness exam Type 2 diabetes mellitus without complication, without long-term current use of insulin (CMS/HCC) ([facility]) SCREENING MAMMOGRAM BILATERAL W BAY Schedule Routine, Read Routine (OP Routine) 11/03/2022 10:59 AM CDT Screening mammogram, encounter for COLONOSCOPY Routine 05/29/2019 DEXA AXIAL SKELETON BONE DENSITY 1 OR MORE SITES Routine 01/21/2016 11:31 AM CDT from Last 3 Months or Most Recently Relevant to Health Maintenance Results * IR Transforaminal Epidural Injection Lumbar Sacral 1 Level Right (04/14/2024 10:48 AM RADIO JOURNALIST) Narrative [facility] - 04/14/2024 10:48 AM RADIO JOURNALIST The images from this study are not interpreted by Radiology. ??Please refer to the physician's procedure / OR operative note. us Shana RENEE IMG IR PROCEDURES Final Result [facility] * XR Scoliosis 6 or More Views (03/24/2024 9:04 AM RADIO JOURNALIST) Anatomical Region Laterality Modality Spine N/A Computed Radiogr aphy 03/24/2024 10:1 3 AM RADIO JOURNALIST Impressions 03/24/2024 10:27 AM RADIO JOURNALIST 1. ??Mild lumbar dextroscoliosis with multilevel degenerative disc disease, moderate at L5-S1. Dictated by: Akshat Guy MD The radiology attending physician has personally reviewed this study, and had reviewed and/or edited this written report and agrees with it. Electronically signed by: Eugene Becerra M.D. Narrative 03/24/2024 10:27 AM RADIO JOURNALIST EXAMINATION: XR SCOLIOSIS ??6 OR MORE VIEWS [...] of Race in Diagnosing Kidney Disease, JASN 2020). The CKD-EPI equation should not be used for patients with unstable renal function and has not been validated in children and those over 70. Current interpretive data was last reviewed 2021. Blood 03/07/2024 1:58 PM CDT 03/07/2024 3:13 PM CDT Gavin Yan MD LAB BLOOD ORDERABLES Final Result Performing Organization Address [facility] de Phone Number [facility] [address] [employer] [address] * (ABNORMAL) Hemoglobin A1c (03/07/2024 [...] children were not included. ?? (Diabetes Care 31:3462-2441, 2008). ??The eAG is not equivalent to a fasting glucose. Blood 03/07/2024 1:58 PM CDT 03/07/2024 3:11 PM CDT Gavin Yan MD LAB BLOOD ORDERABLES Final Result Performing Organization Address [facility] de Phone Number [facility] [address] [employer]. [facility] [place] [address] * Lipid panel (03/07/2024 1:58 PM CDT) Pathologist [facility] Cholesterol 160 30 - 199 mg/dL Comment: [...] revised on 2018. Triglycerides 97 <=149 mg/dL VI[facility] NEWBY Comment: Interpretive Data Ages < or [...] 1:58 PM CDT 03/07/2024 3:13 PM CDT Gavin Yan MD LAB BLOOD ORDERABLES Final Result Performing Organization Address [facility] de Phone Number [facility] [address] [employer]. [facility] [place] [address] * Diabetic Eye Exam (06/19/2023 10:13 AM RADIO JOURNALIST) Edgardo Corado MD HEALTH MAINTENANCE Final Result * Hepatitis C antibody Blood (01/26/2023 12:20 PM CDT) Hep C Ab Nonreactive Nonreactive Comment: Interpretive [...] last revised on 2019. Testing performed by: [facility], [address] [place] [address], [place]., [address] Blood 01/26/2023 12:2 0 PM CDT 01/26/2023 2:30 PM CDT Gavin Yan MD LAB MICROBIOLOGY - GENERAL ORDERABLES Edited Result - Final Performing Organization Address [facility] Co de Phone Number [facility] [address] [employer]. Department [employer] [place], [place] [id number] * Albumin Creatinine Ratio, Urine (01/26/2023 12:20 PM CDT) Albumin Ur <12.0 mg/L [facility] Comment: Interpretive Data No reference range established. Current interpretive data was last revised 2018. Testing performed by: [facility], [address] [place] [address]., [address] Creatinine Ur 16.6 mg/dL [facility] Comment: Interpretive Data No reference range established. Current interpretive data was last revised 2018. Testing performed by: [facility], [address] [place] [address]., [address] Albumin Creatinine Ratio, Ur See Comment 1 - 29 [facility] Comment: Unable to calculate Testing performed by: [facility], [address] [place] [address]., [address] Urine 01/26/2023 12:2 0 PM CDT 01/26/2023 2:31 PM CDT aGvin Yan MD LAB URINE ORDERABLES Final Result Performing Organization Address City/State/[facility] Co de Phone Number [facility] [address] [facility]. Department [place] [address] * Screening Mammogram Bilateral [place] (11/03/2022 10:59 AM CDT) Anatomical Region Laterality Modality Breast Bilateral Mammography Narrative 11/03/2022 3:26 PM CDT Mammogram Technique: Bilateral Digital Breast Tomosynthesis, Bilateral C-view 2D Screening mammogram. ??Views obtained: ??bilateral craniocaudal and bilateral mediolateral oblique. ??Computer Aided Detection was performed. Mammogram Findings: The present examination has been compared to prior imaging studies performed at [facility] on 01/21/2016, 01/12/2020 and 09/21/2021. There are [...] compared to prior imaging studies performed at [facility] on 01/21/2016, 01/12/2020 and 09/21/2021. There are scattered areas of fibroglandular density. There is no suspicious abnormality in either breast. Impression: There is no mammographic evidence of malignancy. Annual screening mammography is recommended. OVERALL FINAL ASSESSMENT: BI-RADS CATEGORY 1: Negative. us Self Screening Mammogram IMG MAMMO PROCEDURES Fi nal Result * Colonoscopy (05/29/2019) Anatomical Region Laterality Modality Other us Historical Provider MD ENDOSCOPY PROCEDURES Margaret l Result * DEXA Axial Skeleton Bone Density Multi Site (01/21/2016 11:31 AM CDT) Anatomical Region Laterality Modality Body N/A Radiographic Tiffani ging 01/21/2016 11:3 1 AM CDT Narrative 01/21/2016 3:42 PM CDT ALIN ANDRE M.D. FINAL REPORT ACC# ??Date Time ??Exam [id number] Jan 21, 2016 11:31:00 [id number] DEXA Axial 1 or 2 Sites EXAMINATION: [...] By: ?? ALIN ANDRE M.D. ??on Jan ??2015 11:34A This document has been electronically signed by: ALIN ANDRE M.D. on Jan ??2015 ??3:42P Procedure Note Provider, MD Edgardo - 08/30/2016 ALIN ANDRE M.D. FINAL REPORT ACC# Date Time Exam [id number] Jan 21, 2016 11:31:00 [id number] DEXA Axial 1 or 2 Sites EXAMINATION: [...] at [email or web address]). Requested By: Dictated By: ALIN ANDRE M.D. on Jan 21 2016 11:34A This document has been electronically signed by: ALIN ANDRE M.D. on Jan 21 2016 3:42P Historical Provider MD OSMAN DXA PROCEDURES Final Result from Last 3 Months or Most Recently Relevant to Health Maintenance Insurance MEDICARE [facility] MEDICARE [facility] MEDICARE SUPPLEMENT FORMERLY [facility] MEDIC[facility] Advance Directives For more information, please contact: [phone] * Full Code (Latest Code Status on File) Date Activated Date Inactivated Comments 10/25/2017 2:21 PM * Full Code Date Activated Date Inactivated Comments 10/23/2017 4:32 PM 10/24/2017 6:11 PM Care Teams Presentation Designer Relationship Specialty Start Date End Date Gavin Yan MD [address] [place] [address] PCP - General Internal Medicine 05/05/21
== END 2024-06-11 11:00 | disposition home or self-care (01) ==
LOC: ANHIMG 11:00
PROVIDERS: Visit Provider Internal Medicine Hematology & Oncology
DX: M81.0 Age-related osteoporosis without current pathological fracture (principal); M85.89 Other specified disorders of bone density and structure, multiple sites
CPT/HCPCS: 36415; 77080; 80053; 85025

== ENCOUNTER 2024-12-12 13:00 | Outpatient (RCR) | payer MEDICARE, SELFPAY ==
[2024-10-09 09:45] VITALS: BMI 25.3
== END 2024-12-29 10:18 | disposition home or self-care (01) ==
LOC: ANHDMC 13:00
DX: E11.9 Type 2 diabetes mellitus without complications (principal); Z71.89 Other specified counseling
CPT/HCPCS: 95249; 97802; G0108

== ENCOUNTER 2025-01-07 10:06 | Outpatient (RCR) | payer MEDICARE, SELFPAY ==
[2025-01-07 10:42] VITALS: BMI 25.4
--- NOTE | 2025-02-12 16:11 | PCDIET ---
Pt cancelled most recent MNT Follow up. At this time, she chooses not to reschedule. Update faxed to referring provider.
== END 2025-03-23 11:41 | disposition home or self-care (01) ==
LOC: ANHDMC 10:06
DX: E11.9 Type 2 diabetes mellitus without complications (principal); Z71.3 Dietary counseling and surveillance
CPT/HCPCS: 97803